=== PATIENT | female | born 1940 | race Caucasian/White ===

== ENCOUNTER → 2016-09-12 | Outpatient (CLI) | payer MEDICARE ==
[~2016-09-12] MED LIST: CRESTOR5 MG PO; IRBE75TA3 PO; METO25TA9 PO
--- NOTE | 2016-09-12 12:46 | CARD ---
APPROVED REPORT EXAM: Two-dimensional and M-mode echocardiogram with Doppler and color Doppler. Other Information Quality : GoodHR: 59bpm Rhythm : Bradycardia INDICATION Dyspnea MIMS RISK FACTORS Hypertension Hyperlipidemia Smoking 2D DIMENSIONS RVDd2.1 (2.9-3.5cm)IVSd1.9 (0.7-1.1cm) Aortic Root(2D)3.0 (2.0-3.7cm)LVDd4.0 (3.9-5.9cm) PWd1.1 (0.7-1.1cm)LVDs2.9 (2.5-4.0cm) FS (%) 28.6 %SV38.1 ml LVEF(%)55.8 (>50%) Mitral Valve MV E Qvhdcgcn23.4cm/sMV DECEL [id number] MV A Jczcojwn47.5cm/sE/A Ratio0.9 Tricuspid Valve TR P. Rnregopk138kj/sRAP SSBJNULK2yvGz TR Peak Gr.35mmHg LEFT VENTRICLE The left ventricle is normal size. There is mild concentric left ventricular hypertrophy. The left ve ntricular systolic function is normal and the ejection fraction is within normal range. The Ejection Fraction is 55-60%. There is normal LV segmental wall motion. Transmitral Doppler flow pattern is Gra de I-abnormal relaxation pattern. RIGHT VENTRICLE The right ventricle is normal size. There is normal right ventricular wall thickness. The right ventr icular systolic function is normal. ATRIA The left atrium size is normal. The right atrium size is normal. The interatrial septum is intact wit h no evidence for an atrial septal defect or patent foramen ovale as noted on 2-D or Doppler imaging. AORTIC VALVE The aortic valve is mildly The aortic valve is trileaflet. Doppler and Color Flow revealed no signifi cant aortic regurgitation. There is no significant aortic valvular stenosis. MITRAL VALVE Mitral annular calcification is mild. The mitral valve leaflets are thickened. There is no evidence o f mitral valve prolapse. There is no mitral valve stenosis. Doppler and Color Flow revealed mild mitr al regurgitation. TRICUSPID VALVE Doppler and Color Flow revealed mild tricuspid regurgitation. The pulmonary artery systolic pressure is estimated at 38 mmHg. PULMONIC VALVE Doppler and Color Flow revealed mild pulmonic valvular regurgitation. There is no pulmonic valvular s tenosis. GREAT VESSELS The aortic root is normal in size. The ascending aorta is normal in size. The IVC is normal in size a nd collapses >50% with inspiration. PERICARDIAL EFFUSION There is no evidence of significant pericardial effusion. Critical Notification Critical Value: No <Conclusion> The left ventricular systolic function is normal and the ejection fraction is within normal range. Th e Ejection Fraction is 55-60%. There is normal LV segmental wall motion. Transmitral Doppler flow pattern is Grade I-abnormal relaxation pattern.
== END | disposition home or self-care (01) ==
LOC: ECHO 09:23
PROVIDERS: ATTEND Nurse Practitioner
DX: I51.7 Cardiomegaly (principal); R11.10 Vomiting, unspecified; R06.00 Dyspnea, unspecified; R06.09 Other forms of dyspnea; I10 Essential (primary) hypertension; E78.5 Hyperlipidemia, unspecified; F17.210 Nicotine dependence, cigarettes, uncomplicated
CPT/HCPCS: 93306

== ENCOUNTER 2016-12-14 17:53 | Emergency (ER) | payer MEDICARE ==
--- NOTE | 2016-12-14 18:36 | EKG ---
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
--- NOTE | 2016-12-14 18:41 | ED.ADGEN ---
Adult General HPI HPI Patient is a 76-year-old woman, with history of hypertension, AAA status post repair and revision at several years ago, colon cancer in the 1970s, who presents to the emergency department with report of altered mental status and being found lying on the floor by her family. Patient's son is present, arrived with EMS did transfer the patient to the hospital. They state the patient was combative en route. Patient's son in the ED states that she was at home this morning, which is last time he saw her. He states another family member saw her late morning, and at that time the patient stated she was going to go lie down. He states that when he arrived at home the patient had been moved to the bed, was apparently found lying on the floor by family and was stated to be "unresponsive" at that time, although is unclear exactly what was happening at that time, he was not present. Patient states that she "tripped", but his neighbor clarify why and when. Patient is currently able to state name and location, although she gives the wrong age, and is grabbing occasionally at staff, and is attempting to move on the bed constantly. GCS of 14-15, depending on time of examination. Accu-Chek in route was 126. Patient's son states that she is combative at times, he cannot provide additional medical history, he does have medication bottles which he picked up from her home, he states that his mother told him" I was just taking medications when I needed", regarding her blood pressure medications. He states that she has been unsteady on her feet lately, but does not know of any recent falls although last month she states she tripped over the dog. He states that she has used alcohol in the past , but did not relieve she is using it currently. C-collar placed on patient arrival to the emergency department. She is moving all extremities stated, complaining of headache, was unable to clarify further. Denies any other complaints, is attempting to roll over, and at times to move out of bed. Review of Systems Review of Systems Constitutional: Denies fever or chills [] Eyes: Denies change in visual acuity, redness, or eye pain [] HENT: Denies nasal congestion or sore throat [] Respiratory: Denies cough or shortness of breath [] Cardiovascular: No additional information not addressed in HPI [] GI: Denies abdominal pain, nausea, vomiting, bloody stools or diarrhea [] : Denies dysuria or hematuria [] Musculoskeletal: Denies back pain or joint pain [] Integument: Denies rash or skin lesions [] Neurologic: Denies focal weakness or sensory changes. Headache area [] Endocrine: Denies polyuria or polydipsia [] Review of systems Limited secondary to patient's clinical condition. Current Medications Current Medications Current Medications Medications (Trade) Dose Ordered Sig/Kaleb Start Time Stop Time Status Last Admin Dose Admin Sodium Chloride 1,000 ml @ 75 mls/hr 1X ONCE 12/14/16 21:00 12/14/16 22:59 DC 12/14/16 21:00 75 MLS/HR Allergies Allergies Allergies Coded Allergies Type Severity Reaction Last Updated Verified No Known Drug Allergies 01/12/16 No Physical Exam Physical Exam Constitutional: Well developed, well nourished, agitated, poor skin turgor. Non- toxic appearance. [] HENT: Normocephalic, atraumatic, bilateral external ears normal, dry mucous membranes, oropharynx moist, no oral exudates, nose normal. [] Eyes: PERRLA, EOMI, conjunctiva normal, no discharge. [] Neck: Normal range of motion, no tenderness, supple, no stridor. [] Cardiovascular:Heart rate regular rhythm, no murmur, S1, S2, no rubs or gallops , examination limited secondary to patient compliance. [] Lungs & Thorax: Diminished breath sounds at bases bilaterally, no rhonchi or rales appreciated, no chest or crepitus or tenderness. [] Abdomen: Bowel sounds normal, soft, no rebound, rigidity, no guarding, no masses , no pulsatile masses. [] Skin: Warm, dry, no erythema, no rash. Poor skin turgor area [] Back: No tenderness, no CVA tenderness. [] Extremities: No tenderness, no cyanosis, no clubbing, ROM intact, no edema. Homans sign. [] Neurologic: Alert and oriented X 2, patient counseling moving, is moving all extremities equally, but not compliant with some questioning, some examination, is agitated, limiting examination. Psychologic: Patient is agitated, confused. [] Current Patient Data Vital Signs Vital Signs Date Time Temp Pulse Resp B/P (MAP) Pulse Ox O2 Delivery O2 Flow Rate FiO2 6/29/17 18:10 98.3 88 16 98 Lab Results Laboratory Tests Test 12/14/16 17:15 12/14/16 18:17 12/14/16 19:00 White Blood Count 12.3 x10^3/uL (4.0-11.0) H Red Blood Count 4.60 x10^6/uL (3.50-5.40) Hemoglobin 14.3 g/dL (12.0-15.5) Hematocrit 39.8 % (36.0-47.0) Mean Corpuscular Volume 87 fL (79-100) Mean Corpuscular Hemoglobin 31 pg (25-35) Mean Corpuscular Hemoglobin Concent 36 g/dL (31-37) Red Cell Distribution Width 12.7 % (11.5-14.5) Platelet Count 204 x10^3/uL (140-400) Neutrophils (%) (Auto) 89 % (31-73) H Lymphocytes (%) (Auto) 6 % (24-48) L Monocytes (%) (Auto) 4 % (0-9) Eosinophils (%) (Auto) 0 % (0-3) Basophils (%) (Auto) 0 % (0-3) Neutrophils # (Auto) 11.0 x10^3uL (1.8-7.7) H Lymphocytes # (Auto) 0.8 x10^3/uL (1.0-4.8) L Monocytes # (Auto) 0.5 x10^3/uL (0.0-1.1) Eosinophils # (Auto) 0.0 x10^3/uL (0.0-0.7) Basophils # (Auto) 0.0 x10^3/uL (0.0-0.2) Sodium Level 107 mmol/L (136-145) *L Potassium Level 3.1 mmol/L (3.5-5.1) L Chloride Level 70 mmol/L (98-107) L Carbon Dioxide Level 24 mmol/L (21-32) Anion Gap 13 (6-14) Blood Urea Nitrogen 15 mg/dL (7-20) Creatinine 1.0 mg/dL (0.6-1.0) Estimated GFR (Cockcroft-Gault) 54.1 BUN/Creatinine Ratio 15 (6-20) Glucose Level 152 mg/dL (70-99) H Calcium Level 9.2 mg/dL (8.5-10.1) Total Bilirubin 1.5 mg/dL (0.2-1.0) H Aspartate Amino Transferase (AST) 42 U/L (15-37) H Alanine Aminotransferase (ALT) 26 U/L (14-59) Alkaline Phosphatase 129 U/L (46-116) H Creatine Kinase 591 U/L (26-192) H Troponin I Quantitative < 0.017 ng/mL (0-0.055) VS-Kyd-E-Type Natriuretic Peptide 1892 pg/mL (0-449) H Total Protein 7.8 g/dL (6.4-8.2) Albumin 4.0 g/dL (3.4-5.0) Albumin/Globulin Ratio 1.1 (1.0-1.7) Ethyl Alcohol Level < 10 mg/dL (0-10) Prothrombin Time 10.4 SEC (9.4-11.4) Prothrombin Time INR 1.0 (0.9-1.1) PTT 29 SEC (23-33) Lactic Acid Level 3.6 mmol/L (0.4-2.0) H Urine Collection Type U cath Urine Color Yellow Urine Clarity Clear Urine pH 6.0 Urine Specific [place] 1.015 Urine Protein Neg (NEG-TRACE) Urine Glucose (UA) Neg mg/dL (NEG) Urine Ketones (Stick) Trace mg/dL (NEG) Urine Blood Small (NEG) Urine Nitrite Neg (NEG) Urine Bilirubin Neg (NEG) Urine Urobilinogen Dipstick 0.2 mg/dL (0.2 mg/dL) Urine Leukocyte Esterase Neg (NEG) Urine RBC Rare /HPF (0-2) Urine WBC 0 /HPF (0-4) Urine Squamous Epithelial Cells Few /LPF Urine Transitional Epithelial Cells Occ /LPF Urine Bacteria 0 /HPF (0-FEW) Urine Hyaline Casts Occ /HPF Urine Mucus Slight /LPF Urine Opiates Screen Neg (NEG) Urine Methadone Screen Neg (NEG) Urine Barbiturates Neg (NEG) Urine Phencyclidine Screen Neg (NEG) Urine Amphetamine/Methamphetamine Neg (NEG) Urine Benzodiazepines Screen Neg (NEG) Urine Cocaine Screen Neg (NEG) Urine Cannabinoids Screen Neg (NEG) Urine Ethyl Alcohol Neg (NEG) EKG EKG EC: Limited evaluation secondary to patient compliance, multiple times to obtain ECG, sinus tachycardia, heart rate 113 beats are minute, QTC of 483, AL 136, significant baseline artifact as stated, significantly limiting interpretation, concerning for possible abnormalities in the anterior lateral leads, but as stated interpretation is significantly limited secondary to exam. [] Radiology/Procedures Radiology/Procedures [][address] [address] IMAGING REPORT Signed PATIENT: GABRIEL NEWTON ACCOUNT: [id number] : 1940 LOCATION: ER AGE: 76 SEX: F EXAM STATUS: REG ER ORD. PHYSICIAN: SWETA HOLLINGSWORTH DO REASON: AMS/Fall/Possible intoxication PROCEDURE: CT HEAD AND CERVICAL SPINE WO CT head without intravenous contrast History: Altered mental status, fall, possible intoxication. Comparison: None. Technique: Axial images are obtained of the head from the skull base through the vertex without IV contrast. Exposure: One or more of the following individualized dose reduction techniques were utilized for this examination: 1. Automated exposure control 2. Adjustment of the mA and/or kV according to patient size 3. Use of iterative reconstruction technique Findings: The ventricles are appropriate in size, shape, and location for the patient's age. No obvious intracranial mass, mass-effect, midline shift, hemorrhage or obvious acute infarction is identified. Basilar cisterns are patent. Bone windows demonstrate no acute calvarial abnormality. Incompletely seen is mild left maxillary sinus disease. Impression: 1. No acute intracranial process. Please note that CT can be relatively insensitive to acute ischemic infarction for up to 24 hours after symptom onset. 2. Left maxillary sinus disease. CT cervical spine Comparison: None. Technique: Noncontrast CT of the cervical spine was performed using helical technique. Axial, sagittal, coronal reconstructions were obtained. Exposure: One or more of the following individualized dose reduction techniques were utilized for this examination: 1. Automated exposure control 2. Adjustment of the mA and/or kV according to patient size 3. Use of iterative reconstruction technique Findings: There is no evidence of acute fracture or acute malalignment involving the cervical spine. No prevertebral soft tissue swelling is identified. Multilevel degeneration is seen with facet and uncovertebral hypertrophy as well as degenerative disc disease. Images of the upper chest demonstrate centrilobular emphysema. Impression: 1. No evidence of acute traumatic injury involving the cervical spine. 2. Degeneration. Electronically signed by: Hugo Downs MD (12/14/2016 7:32 PM) DICTATED AND SIGNED BY: HUGO DOWNS MD DATE: 12/14/161927 CC: SWETA HOLLINGSWORTH DO; NURA ANNE ~ Chest x-ray: One view: Patient with tortuous ectatic aorta, no infiltrates, effusions, soft tissue or bony abnormalities identified. No significant change when compared to chest x-ray obtained earlier today. As interpreted by me. Course & Med Decision Making Course & Med Decision Making Pertinent Labs and Imaging studies reviewed. (See chart for details) Patient combative, confused on arrival, although she is moving all extremities and will sometimes his request appropriately, she has not following commands, requires assistance of multiple staff members in order to obtain ECG and evaluation. C-collar was placed on arrival, patient was fully undressed and evaluated, no external signs of trauma identified. Patient is complaining of "pain in my head", but cannot clarify further. I did speak with patient's son at bedside, who again states the patient had a medication change recently, with hydrochlorothiazide for blood pressure, although it was unclear if the patient is been compliant with her medications based on his report of which she stated, and that she has had multiple falls recently and has been increasingly unsteady in her gait. Additional information obtained, patient was last seen normal around 11:30, returning from a doctor's appointment. Imaging of head and neck is unremarkable, laboratory studies reveal a sodium of 107, and a potassium of 3.1, with a lactic of 3.6. I did discuss this with patient's family at bedside, patient is requiring soft restraints at this time, as she continues to be combative and confused, and she is at risk to both herself and staff, along with family at bedside. They've attempted to redirect her without success. They' re agreeable for plan for patient to be admitted to the hospital for treatment of hyponatremia, patient has not exhibited any seizure activity. As stated, patient was recently started on hydrochlorothiazide, no other changes or concerning history reported. No other findings identified in the evaluation. I did discuss findings as above with Dr. Sotelo of nephrology, who recommends the patient be initiated on normal saline at 75 ML's an hour, due to the severity of her hyponatremia, that he be contacted upon the time of the patient's arrival at [facility] for additional orders and evaluation. I did discuss findings as above with Dr. merrill of internal medicine, patient was accepted his service as a full admission, at this time plan to transfer to the ICU for close monitoring. I had a lengthy discussion at bedside with patient's family regarding the risks of hyponatremia, and that even with slow repletion, that some injury could be caused. They understand the critical nature of her mother's illness, and the treatment plan in place at this time. Transfer paper was completed, patient remained stable on the monitor with normal saline infusing at 75 ML's an hour, at time of transfer to [facility]. Final Impression Final Impression [] Problems: Dragon Disclaimer Dragon Disclaimer This electronic medical record was generated, in whole or in part, using a voice recognition dictation system. Departure: Impression: Primary Impression: Hyponatremia Additional Impression: Altered mental status Disposition: ADMITTED INPATIENT Admitting Physician: Other Condition: IMPROVED SWETA HOLLINGSWORTH DO Dec 14, 2016 18:40
--- NOTE | 2016-12-14 18:52 | ACF ---
Admission Criteria Forms MENTAL STATUS CHANGE Clinical Indications for Inpatient Care (Place 'X' for any and all applicable criteria): Ongoing inpatient care may be needed for 1 or more of the following(1)(2)(3)(5)( 6): [X ]I. Suspected serious etiology (eg, medical disorder, HARDWARE INSTALLATION COORDINATOR event) of altered mental status [ ]II. Danger to self or others not manageable at lower level of care [ ]III. Grave disability (eg, inability to perform self care necessary at lower level of care) [ ]IV. Agitation or inappropriate behavior interfering with care for primary condition (eg, attempting to discontinue lines or drains prematurely, unable to cooperate with respiratory care) [ ]V. Delirium [A] [D][E] as described by 1 or more of the following(26): [ ]a) Delirium due to alcohol or sedative [F] withdrawal [ ]b) Delirium of uncertain etiology that has not responded to appropriate empiric treatment [ ]c) Delirium that prevents performance of a life-sustaining function (eg, feeding or hydrating oneself) [ ]. General contraindications and/or Inappropriate clinical situations for Observational Care in patients with Mental Status Change, when ANY ONE of the following is required: [ ]a) Prediction of prolongation of LOS based on ANY ONE of the following may be considered as a contraindication for observational care 2, 3, 4, 5, 6, 7, 8, 9, 10, 11 [ ]i) Age > 65 yrs. [ ]ii) Patient arriving by ambulance [ ]iii) Patient with high acuity [ ]iv) Patient requiring vital sign monitoring [ ]v) Patient on IV medication [ ]b) Systolic blood pressures greater than or equal to 180mmHg 3, 12 [ ]c) Patient with altered mental status including delirium and other alteration of consciousness, (3) [ ]d) Patient whose discharge disposition will be to a halfway home or rehabilitation home should not be managed in Emergency Department Observation Unit. CMS rule requires 3 days hospital stay before such placement.3,13 [ ]e) Patient with failure to thrive due to broad array of etiologies 3,16,17 [ ]f) Inability to ambulate 3,14 Extended stay beyond goal length of stay for the primary condition may be needed until ALL of the following are present(3)(5): [ ]a) Underlying medical etiology of mental status change is absent, or has been established and adequately treated [ ]b) Danger to self or others is absent or manageable at lower level of care. [ ]c) Behavior crisis management, including physical or chemical restraints, is not required or available at lower level of car [ ]d) Substance or alcohol withdrawal is absent or manageable at lower level of care. [ ]e) Behavioral symptoms (eg, agitation, somnolence, inappropriate behavior) are absent, or are manageable at lower level of care. The original [email or web address] content created by [email or web address] has been revised. The portions of the content which have been revised are identified through the use of italic text or in bold, and [facility] has neither reviewed nor approved the modified material. All other unmodified content is copyright [email or web address]. Please see references footnoted in the original [email or web address] edition 2016 Admission Criteria Met?: Yes ALANNAH LOVE Dec 14, 2016 18:52
[2016-12-14 19:27] LABS: BASO % 0 % (0-3); EOS % 0 % (0-3); HEMATOCRIT 39.8 % (36.0-47.0); HEMOGLOBIN 14.3 g/dL (12.0-15.5); LYMPH # 0.8 x10^3/uL (1.0-4.8); LYMPH % 6 % (24-48); MEAN CORPUSCULAR HEMOGLOBIN 31 pg (25-35); MEAN CORPUSCULAR HGB CONC 36 g/dL (31-37); MEAN CORPUSCULAR VOLUME 87 fL (79-100); MONO # 0.5 x10^3/uL (0.0-1.1); MONO % 4 % (0-9); NEUT % 89 % (31-73); PLATELET COUNT 204 x10^3/uL (140-400); RED CELL DISTRIBUTION WIDTH 12.7 % (11.5-14.5); WHITE BLOOD COUNT 12.3 x10^3/uL (4.0-11.0)
[2016-12-14 19:35] LABS: CLARITY,URINE CLEAR; COLOR,URINE YELLOW; GLUCOSE,URINE NEG (NEG)
--- NOTE | 2016-12-14 19:35 | RAD ---
CT head without intravenous contrast History: Altered mental status, fall, possible intoxication. Comparison: None. Technique: Axial images are obtained of the head from the skull base through the vertex without IV contrast. Exposure: One or more of the following individualized dose reduction techniques were utilized for this examination: 1. Automated exposure control 2. Adjustment of the mA and/or kV according to patient size 3. Use of iterative reconstruction technique Findings: The ventricles are appropriate in size, shape, and location for the patient's age. No obvious intracranial mass, mass-effect, midline shift, hemorrhage or obvious acute infarction is identified. Basilar cisterns are patent. Bone windows demonstrate no acute calvarial abnormality. Incompletely seen is mild left maxillary sinus disease. Impression: 1. No acute intracranial process. Please note that CT can be relatively insensitive to acute ischemic infarction for up to 24 hours after symptom onset. 2. Left maxillary sinus disease. CT cervical spine Comparison: None. Technique: Noncontrast CT of the cervical spine was performed using helical technique. Axial, sagittal, coronal reconstructions were obtained. Exposure: One or more of the following individualized dose reduction techniques were utilized for this examination: 1. Automated exposure control 2. Adjustment of the mA and/or kV according to patient size 3. Use of iterative reconstruction technique Findings: There is no evidence of acute fracture or acute malalignment involving the cervical spine. No prevertebral soft tissue swelling is identified. Multilevel degeneration is seen with facet and uncovertebral hypertrophy as well as degenerative disc disease. Images of the upper chest demonstrate centrilobular emphysema. Impression: 1. No evidence of acute traumatic injury involving the cervical spine. 2. Degeneration. Electronically signed by: Hugo Murphy MD (12/14/2016 7:32 PM)
[2016-12-14 19:36] LABS: BACTERIA,URINE 0 /HPF (0-FEW); BILIRUBIN,URINE NEG (NEG); HYALINE CASTS, URINE OCC /HPF; NITRITE,URINE NEG (NEG); RBC,URINE RARE /HPF (0-2); SQUAMOUS EPITHELIAL CELL,UR FEW /LPF; UROBILINOGEN,URINE 0.2 mg/dL (0.2 mg/dL); WBC,URINE 0 /HPF (0-4)
[2016-12-14 19:42] LABS: BARBITURATES NEG (NEG); BENZODIAZEPINES NEG (NEG); CANNABINOIDS NEG (NEG); COCAINE NEG (NEG); METHADONE NEG (NEG); OPIATES NEG (NEG); PHENCYCLIDINE NEG (NEG)
[2016-12-14 19:43] LABS: AMPHETAMINE/METHAMPHETAMINE NEG (NEG)
[2016-12-14 19:47] LABS: ALBUMIN/GLOBULIN RATIO 1.1 (1.0-1.7); CALCIUM 9.2 mg/dL (8.5-10.1); GFR 54.1; POTASSIUM 3.1 mmol/L (3.5-5.1); TOTAL BILIRUBIN 1.5 mg/dL (0.2-1.0); TOTAL PROTEIN 7.8 g/dL (6.4-8.2)
[2016-12-14] MEDS ORDERED: IV NORMAL SALINE 1,000ML 1,000 ML IV ONE (21:00)
[2016-12-14 22:30] VITALS: BP 116/67
--- NOTE | 2016-12-15 07:58 | RAD ---
Portable AP supine view CXR: Clinical indications: Altered mental status. Fall. Combativeness. No medical history. Comparison: July 25, 2016.. Findings: No acute lung infiltrate or pleural effusion or pulmonary edema or lung mass or pneumothorax is seen. The heart size, pulmonary vasculature, mediastinum and both benito are stable. Tortuosity of the thoracic aorta is again noted. Impression: No acute radiographic abnormality is seen.
== END 2016-12-14 22:30 | disposition other institution (70) ==
LOC: ER 17:53
DX: R41.82 Altered mental status, unspecified (principal); E87.1 Hypo-osmolality and hyponatremia; I10 Essential (primary) hypertension; I71.4 Abdominal aortic aneurysm, without rupture; R29.6 Repeated falls
CPT/HCPCS: 36415; 70450; 71010; 72125; 80053; 80305; 80320; 81001; 82550; 83605; 83880; 84484; 85027; 85610; 85730; 93005; 96360; G0480; G0481; 99285-25; J7030

== ENCOUNTER → 2016-12-14 | Outpatient (CLI) | payer MEDICARE ==
--- NOTE | 2016-12-14 11:10 | RAD ---
Indication: Cough and unsteady gait. Time of exam 10:59 AM No prior studies are available for comparison. The heart size is normal. There is marked ectasia and tortuosity of the descending thoracic aorta and aortic arch. The lungs appear hyperinflated consistent with COPD. No infiltrates are detected. No effusion or pneumothorax is identified. Impression: COPD. No acute feature is detected.
== END | disposition home or self-care (01) ==
LOC: DXRADRC 10:48
PROVIDERS: ATTEND Family Medicine
DX: J44.9 Chronic obstructive pulmonary disease, unspecified (principal); R26.81 Unsteadiness on feet
CPT/HCPCS: 71020

== ENCOUNTER 2016-12-22 15:54 | Inpatient (IN) | payer MEDICARE ==
[~2016-12-22] VITALS: Ht 157.5 cm; Wt 54.6 kg
[~2016-12-22 15:54] MED LIST changes: +ACET325T9 PO; +AMLO5TAB4 PO; +ATORVASTATIN CA80 MG PO; +DOCU-109 PO; +ENOX40DI SQ; +FAMO-63 PO; +GABA-586 PO; +LOSA100T2 PO; +MAGN400T3 PO; +METO50TA2 PO; +TRAM50TA PO
--- NOTE | 2016-12-22 16:05 | NUR ---
Swing Bed Admission Patient Handbook for [facility] given to patient. Nursing Problem: Physical therapy and Occupation therapy Cognitive/Behavioral:PT is Ax0x3 with some confusion or forgetfulness at times. Pain: No pain at this time. Respiratory Status:Pt has a non productive cough. Skin:Intact no wounds, multiple bruises. Bowel/Bladder Continence:Continent of bowel and bladder. ADL Functional Status:PT has trouble getting up from sitting position. One person assist. Than pt is 1:1 monitoring when ambulating with wheeled walker. PT needs assistance with dressing and toileting. Pt can feed self, but can have soft diet, no straws, no distractions, and must be at a 90 degree angle per speech evaluation. PT did have fall prior to admission, pt was found to have critical sodium unsure if contributed to fall. PT does have shuffling gait and needs to be encouraged to take larger steps. PT was brought to [facility] and transferred to [facility] for hyponatremia. PT is being transferred back from [facility] for PT/OT for 2 weeks. PT does live with her with son. Hue Marks PANEL MAKER CMSRN NM-
--- NOTE | 2016-12-22 16:16 | NUR ---
Swing Bed Nursing Note Patient Handbook for [facility] given to patient. Nursing Problem:Weakness: Physical therapy and occupational therapy Cognitive/Behavioral: PT is Ax0x3 with some forgetfulness at times. Pain:No pain at this time. Respiratory Status: Pt has non productive cough. Skin: Intact some bruising noted on arms with friable skin. Bowel/Bladder Continence: Pt is continent of bowel and bladder. Bowl movement today 12/22/16 prior to leaving [facility]. ADL Functional Status: PT needs 1 person assist to get up from chair than observation while ambulating with walker. Minimal assist with walking in the vil[place]. Pt does have shuffling gait and needs to be encourage to take larger steps. Max assist with dressing and toileting. Hue Marks [employer]RN [facility]
[2016-12-22 16:25] VITALS: BP 153/83
[2016-12-22] MEDS ORDERED: traMADol 50 MG TABLET PO PRN (16:30)
[2016-12-22] MEDS ORDERED: DOCUSATE SODIUM 100 MG CAPSULE PO PRN (16:30)
[2016-12-22] MEDS ORDERED: ACETAMINOPHEN 325 MG TABLET PO PRN (16:30)
[2016-12-22] MEDS ORDERED: GABAPENTIN 300 MG CAPSULE. PO PRN (16:30)
[2016-12-22 18:47] VITALS: BP 147/90
[2016-12-22] MEDS: METOPROLOL TART IMMED RELEASE 50 MG TABLET PO SCH (20:21)
[2016-12-22] MEDS: ATORVASTATIN CALCIUM 20 MG TABLET PO SCH (20:21)
[2016-12-22] MEDS: FAMOTIDINE 20 MG TABLET PO SCH (20:22)
[2016-12-22] MEDS: MAGNESIUM OXIDE 400 MG TABLET PO SCH (20:22)
--- NOTE | 2016-12-22 23:00 | NUR ---
Swing Bed Nursing Note Patient Handbook for Nursing Home given to patient. Nursing Problem:Weakness: Physical therapy and occupational therapy Cognitive/Behavioral: PT is Ax0x3 with some forgetfulness at times. Pain:No pain at this time. Respiratory Status: Pt has productive cough. Skin: Intact some bruising noted on arms with friable skin. Bowel/Bladder Continence: Pt is continent of bowel and bladder. Bowl movement 12/22 ADL Functional Status: PT needs 1 person assist to get up from chair than observation while ambulating with walker. Minimal assist with walking in the villegas. Pt does have shuffling gait and needs to be encourage to take larger steps. Max assist with dressing and toileting. Takes pills one at a time with several sips of water with each pill.
--- NOTE | 2016-12-23 04:01 | NUR ---
Patient complained of chest soreness from coughing. Requested pain medication. PRN tramadol given.
[2016-12-23 05:28] VITALS: BP 158/87
[2016-12-23] MEDS: amLODIPine BESYLATE 5 MG TABLET PO SCH (10:02)
[2016-12-23] MEDS: METOPROLOL TART IMMED RELEASE 50 MG TABLET PO SCH ×2 (10:02→21:19)
[2016-12-23] MEDS: LOSARTAN 50 MG TABLET. PO SCH (10:02)
[2016-12-23] MEDS: MAGNESIUM OXIDE 400 MG TABLET PO SCH ×2 (10:03→21:18)
[2016-12-23] MEDS ORDERED: POLYVINYL ALCOHOL 1.4% OPHTH SOLUTION 15ML BOTTLE. OU PRN (12:45)
--- NOTE | 2016-12-23 18:08 | NUR ---
Swing Bed Nursing Note Patient Handbook for [facility] given to patient. Nursing Problem:Weakness: Physical therapy and occupational therapy Cognitive/Behavioral: PT is Ax0x3 with some forgetfulness at times. Pain:PT reports pain in back which seems to hinder movement, however refuses any pain meds. Respiratory Status: Pt has productive cough. Skin: Intact some bruising noted on arms with friable skin. Bowel/Bladder Continence: Pt is continent of bowel and bladder. Bowl movement 12/22 ADL Functional Status: PT needs 1 person assist to get up from chair then standby assist while ambulating with walker. Standby assist needed when walking in hallway. Pt does have an unsteady, shuffling gait and needs to be encouraged to take larger steps. Max assist with dressing and toileting. Takes pills one at a time with several sips of water with each pill.
[2016-12-23 19:10] VITALS: BP 126/74
--- NOTE | 2016-12-23 20:25 | NUR ---
Swing Bed Nursing Note Patient Handbook for [facility] given to patient. Nursing Problem: Weakness, poor balance and coordination. Pt here for physical therapy and occupational therapy for strength training. Cognitive/Behavioral: Pt is Ax0x3 with some forgetfulness at times but pleasant and cooperative with HS assessment. Pt siting up in bed at change of shift watching TV and reading the news paper. Pt stated that she had a good but long day. Pain: Pt reports some back soreness/stiffness but refused pain medication at this time. Pt also had a RUE PICC line that was removed recently and stated that it is sore when her BP is taken over that site, asked that we not use that arm for BP. Respiratory Status: Pt has a chronic "smokers cough." Pt is on room air. Mild SOB noted with exertion. Skin: Intact some bruising noted on arms. Thin/friable skin. Coccyx noted to be intact. Bowel/Bladder Continence: Pt is continent of bowel and bladder. Bowl movement 7/7 per pt. ADL Functional Status: Pt needs x1 person assist to get up from bed/chair but then standby assist while ambulating with walker for guiding/steering walk as she gets easily distracted. Pt with small step/shuffling gait. Pt encouraged to take larger steps. Pt needs x1 assist with toileting and personal hygiene. Takes pills whole but one at a time with several sips of water with each pill. Pt needs to be sitting up with ANY intake. Pt refused HS snack.
[2016-12-23] MEDS: FAMOTIDINE 20 MG TABLET PO SCH (21:19)
[2016-12-23] MEDS: ATORVASTATIN CALCIUM 20 MG TABLET PO SCH (21:19)
[2016-12-24 05:53] VITALS: BP 151/91
[2016-12-24] MEDS: LOSARTAN 50 MG TABLET. PO SCH (08:12)
[2016-12-24] MEDS: METOPROLOL TART IMMED RELEASE 50 MG TABLET PO SCH ×2 (08:12→20:07)
[2016-12-24] MEDS: amLODIPine BESYLATE 5 MG TABLET PO SCH (08:12)
[2016-12-24] MEDS: MAGNESIUM OXIDE 400 MG TABLET PO SCH ×2 (08:13→20:07)
--- NOTE | 2016-12-24 09:43 | NUR ---
Swing Bed Nursing Note Patient Handbook for [facility] given to patient. Nursing Problem: Pt here for PT/OT services for gait training due to weakness, poor balance and coordination. Cognitive/Behavioral: Pt is Ax0x3 with some forgetfulness at times. Pt is pleasant and cooperative with care and ADLS. Upon assessment patient is sitting in chair eating breakfast and able to make needs known. States she is tired. Pain: Reported to nurse that patient has some back soreness/stiffness but refuses to take pain medication. When questioning patient if she is having any pain patient denied. Respiratory Status: Pt has a chronic "smokers cough." States her cough comes and goes. Pt is on room air. Mild SOB noted with exertion. Skin: Intact some bruising noted on arms. Thin/friable skin. Coccyx noted to be intact. Bowel/Bladder Continence: Pt is continent of bowel and bladder. Bowl movement 12/24. ADL Functional Status: Pt requires x1 person assist to get up from bed/chair and then standby assist while ambulating with walker. Pt with small step/shuffling gait. Pt encouraged to take larger steps. Pt needs x1 assist with toileting and personal hygiene. Pt was able to due oral care independently and brush and blow dry hair independently as well. Shower completed this AM, requiring minimal assist. Pt takes pills whole but one at a time with several sips of water with each pill. No complaints at this time.
--- NOTE | 2016-12-24 11:10 | NUR ---
Assumed care of pt.
[2016-12-24 19:02] VITALS: BP 148/79
[2016-12-24] MEDS: FAMOTIDINE 20 MG TABLET PO SCH (20:07)
[2016-12-24] MEDS: ATORVASTATIN CALCIUM 20 MG TABLET PO SCH (20:07)
--- NOTE | 2016-12-24 23:00 | NUR ---
Swing Bed Nursing Note Patient Handbook for [facility] given to patient. Nursing Problem:Weakness: Physical therapy and occupational therapy Cognitive/Behavioral: PT is Ax0x3 with some forgetfulness at times. Patient has not slept much this shift. Pain:No pain at this time. Respiratory Status: Pt has productive cough, 02 Sat is WNL, lung sounds are course. Skin: Intact some bruising noted on arms with friable skin. Bowel/Bladder Continence: Pt is continent of bowel and bladder. Bowl movement 12/24 ADL Functional Status: PT needs 1 person assist to get up from chair than observation while ambulating with walker. Pt does have shuffling gait and needs to be encourage to take larger steps. Max assist with dressing and toileting. Takes pills one at a time with several sips of water with each pill. Patient refused HS snack. Head of bed is elevated while in bed. Patient did put a gown on at HS but stated that she had to keep her sweat shirt on under so she wouldn't be too cold.
[2016-12-25 05:37] VITALS: BP 149/56
[2016-12-25 06:10] LABS: BASO # 0.1 x10^3/uL (0.0-0.2); BASO % 1 % (0-3); EOS # 0.2 x10^3/uL (0.0-0.7); EOS % 2 % (0-3); HEMATOCRIT 31.8 % (36.0-47.0); HEMOGLOBIN 11.2 g/dL (12.0-15.5); LYMPH # 0.9 x10^3/uL (1.0-4.8); LYMPH % 12 % (24-48); MEAN CORPUSCULAR HEMOGLOBIN 32 pg (25-35); MEAN CORPUSCULAR HGB CONC 35 g/dL (31-37); MEAN CORPUSCULAR VOLUME 91 fL (79-100); MONO # 0.6 x10^3/uL (0.0-1.1); MONO % 7 % (0-9); NEUT # 5.8 x10^3uL (1.8-7.7); NEUT % 77 % (31-73); PLATELET COUNT 145 x10^3/uL (140-400); RED BLOOD COUNT 3.51 x10^6/uL (3.50-5.40); RED CELL DISTRIBUTION WIDTH 13.2 % (11.5-14.5); WHITE BLOOD COUNT 7.5 x10^3/uL (4.0-11.0)
[2016-12-25 06:38] LABS: ALBUMIN/GLOBULIN RATIO 0.9 (1.0-1.7); CALCIUM 8.8 mg/dL (8.5-10.1); CREATININE 0.9 mg/dL (0.6-1.0); TOTAL BILIRUBIN 0.9 mg/dL (0.2-1.0); TOTAL PROTEIN 6.2 g/dL (6.4-8.2)
[2016-12-25] MEDS ORDERED: IPRATRPIUM/ALBUTEROL 0.5/2.5MG 3 ML NEBU. NEB PRN (07:30)
[2016-12-25] MEDS ORDERED: IPRATRPIUM/ALBUTEROL 0.5/2.5MG 3 ML NEBU. NEB ONE (07:30)
[2016-12-25] MEDS: MAGNESIUM OXIDE 400 MG TABLET PO SCH ×2 (08:04→19:48)
[2016-12-25] MEDS: METOPROLOL TART IMMED RELEASE 50 MG TABLET PO SCH ×2 (08:04→19:49)
[2016-12-25] MEDS: LOSARTAN 50 MG TABLET. PO SCH (08:04)
[2016-12-25] MEDS: amLODIPine BESYLATE 5 MG TABLET PO SCH (08:05)
[2016-12-25] MEDS: guaiFENesin DM 600/30MG 1 TAB TAB.ER.12H PO SCH ×2 (08:06→19:48)
--- NOTE | 2016-12-25 08:30 | NUR ---
Swing Bed Nursing Note [facility] given to patient. Nursing Problem: Pt here for PT/OT services for gait training due to weakness, poor balance and coordination. Cognitive/Behavioral: Pt is Ax0x3 with some forgetfulness at times. Pt is pleasant and cooperative with care and ADLS this AM. Pt awakened this AM wanting to get dressed, brush teeth and get ready for the day. Pt ate 100% of breakfast and states she loves peanut butter and cereal, dietary notified. Pain: Pt denies pain or discomfort at this time. Reported to nurse that she will deny pain medication. Respiratory Status: Pt has a chronic "smokers cough." States her cough comes and goes. Pt is on room air 92%. Mild SOB noted with exertion. Notfied physician of productive cough that appears to have worsened, mucinex and mmtx ordered this AM. Skin: Intact some bruising noted on arms. Thin/friable skin. Coccyx noted to be intact. Bowel/Bladder Continence: Pt is continent of bowel and bladder. Bowl movement 12/24. ADL Functional Status: Pt requires x1 person assist to get up from bed/chair and then standby assist while ambulating with walker. Pt with small step/shuffling gait. Pt encouraged to take larger steps. Pt was independent with toileting and personal hygiene today. Pt was able to due oral care independently and brush hair independently as well. Working with PT/OT today. Pt takes pills whole but one at a time with several sips of water with each pill. No complaints at this time.
[2016-12-25] MEDS ORDERED: POTASSIUM CHLORIDE 20 MEQ TABLET.ER. PO SCH ×2 (09:00→21:00)
[2016-12-25 19:17] VITALS: BP 131/81
[2016-12-25] MEDS: ATORVASTATIN CALCIUM 20 MG TABLET PO SCH (19:48)
[2016-12-25] MEDS: FAMOTIDINE 20 MG TABLET PO SCH (19:48)
--- NOTE | 2016-12-26 00:48 | NUR ---
Swing Bed Nursing Note Patient Handbook for [facility] given to patient. Nursing Problem: Pt here for PT/OT services for gait training due to weakness, poor balance and coordination. Cognitive/Behavioral: Pt is Ax0x3 with some forgetfulness at times. Pt is pleasant and cooperative with care and ADLS this AM. Pt is sitting up in her chair, watching tv. Pain: Pt denies pain or discomfort at this time. Reported to nurse that she will deny pain medication. Respiratory Status: Pt has a chronic "smokers cough." States her cough comes and goes. Pt O2 is 93% on room air, and receiving Mucinex BID Skin: Intact some bruising noted on arms. Skin intact. Bowel/Bladder Continence: Pt is continent of bowel and bladder. Bowl movement 12/25. ADL Functional Status: Pt requires x1 person assist to get up from bed/chair and then standby assist while ambulating with walker. Pt with small step/shuffling gait. Pt was independent with toileting and personal hygiene today. Pt takes pills whole but one at a time with several sips of water with each pill. No complaints at this time.
[2016-12-26 06:13] VITALS: BP 130/69
[2016-12-26 06:34] LABS: ALBUMIN 3.3 g/dL (3.4-5.0); ALBUMIN/GLOBULIN RATIO 0.9 (1.0-1.7); CREATININE 0.9 mg/dL (0.6-1.0); MAGNESIUM 1.6 mg/dL (1.8-2.4); POTASSIUM 3.2 mmol/L (3.5-5.1); TOTAL BILIRUBIN 1.1 mg/dL (0.2-1.0); TOTAL PROTEIN 6.8 g/dL (6.4-8.2)
[2016-12-26] MEDS ORDERED: POTASSIUM CHLORIDE 20 MEQ TABLET.ER. PO SCH (07:45)
[2016-12-26] MEDS: guaiFENesin DM 600/30MG 1 TAB TAB.ER.12H PO SCH ×2 (08:21→20:19)
[2016-12-26] MEDS: MAGNESIUM OXIDE 400 MG TABLET PO SCH ×3 (08:21→16:35)
[2016-12-26] MEDS: LOSARTAN 50 MG TABLET. PO SCH (08:21)
[2016-12-26] MEDS: METOPROLOL TART IMMED RELEASE 50 MG TABLET PO SCH ×2 (08:22→20:19)
[2016-12-26] MEDS: amLODIPine BESYLATE 5 MG TABLET PO SCH (08:22)
[2016-12-26] MEDS: POTASSIUM CHLORIDE 20 MEQ TABLET.ER. PO SCH ×2 (08:22→20:18)
--- NOTE | 2016-12-26 08:41 | NUR ---
Swing Bed Nursing Note Patient Handbook for [facility] given to patient. Nursing Problem: Pt here for PT/OT services for gait training due to weakness, poor balance and coordination. Cognitive/Behavioral: Pt is Ax0x3 with some forgetfulness at times. Pt is pleasant and cooperative with care and ADLS this AM. Pt is sitting up on bedside, dressed and talking with her son. Pain: Pt denies pain or discomfort at this time. Reported to nurse that she will deny pain medication as she is "not a pill popper". Respiratory Status: Pt has a chronic "smokers cough." States her cough comes and goes. Pt O2 is 93% on room air, and receiving Mucinex BID Skin: Intact some bruising noted on arms. Skin intact. Bowel/Bladder Continence: Pt is continent of bowel and bladder. Bowel movement 12/26, large loose. ADL Functional Status: Pt requires standby assist while ambulating with walker. Pt with small step/shuffling gait. Pt was independent with toileting and personal hygiene today. Pt takes pills whole but one at a time with several sips of water with each pill. Let potassium dissolve and placed in pudding, pt was having difficulty with large pills. Discussed need for a multi-vitamin, daily use at home. No complaints at this time.
[2016-12-26 10:54] VITALS: BP 103/68
[2016-12-26 18:38] VITALS: BP 105/66
[2016-12-26] MEDS: ATORVASTATIN CALCIUM 20 MG TABLET PO SCH (20:18)
[2016-12-26] MEDS: FAMOTIDINE 20 MG TABLET PO SCH (20:19)
--- NOTE | 2016-12-27 01:02 | NUR ---
Swing Bed Nursing Note Patient Handbook for [facility] given to patient. Nursing Problem: Pt here for PT/OT services for gait training due to weakness, poor balance and coordination. Cognitive/Behavioral: Pt is Ax0x3 with some forgetfulness at times. Pt is pleasant and cooperative with care and ADLS this AM. Pt is resting peacefully in bed at this time. Pain: Pt denies pain or discomfort at this time. Respiratory Status: Pt has a chronic "smokers cough." States her cough comes and goes. Pt O2 is 93% on room air, and receiving Mucinex BID Skin: Intact some bruising noted on arms. Skin intact. Bowel/Bladder Continence: Pt is continent of bowel and bladder. Bowel movement 12/26, large loose. ADL Functional Status: Pt requires standby assist while ambulating with walker. Pt with small step/shuffling gait. Pt was independent with toileting and personal hygiene today. Pt takes pills whole but one at a time with several sips of water with each pill. Let potassium dissolve and placed in pudding, pt was having difficulty with large pills. Discussed need for a multi-vitamin, daily use at home. No complaints at this time.
[2016-12-27] MEDS: MAGNESIUM OXIDE 400 MG TABLET PO SCH ×3 (07:33→16:56)
[2016-12-27] MEDS: LOSARTAN 50 MG TABLET. PO SCH (08:31)
[2016-12-27] MEDS: POTASSIUM CHLORIDE 20 MEQ TABLET.ER. PO SCH ×2 (08:32→20:19)
[2016-12-27] MEDS: amLODIPine BESYLATE 5 MG TABLET PO SCH (08:33)
[2016-12-27] MEDS: guaiFENesin DM 600/30MG 1 TAB TAB.ER.12H PO SCH ×2 (08:33→20:19)
[2016-12-27] MEDS: METOPROLOL TART IMMED RELEASE 50 MG TABLET PO SCH ×2 (08:33→20:19)
[2016-12-27 08:38] VITALS: BP 142/84
--- NOTE | 2016-12-27 09:28 | NUR ---
Swing Bed Nursing Note Patient Handbook for [facility] given to patient. Nursing Problem: Pt here for PT/OT services for gait training due to weakness, poor balance and coordination. Cognitive/Behavioral: Pt is A/0x3 with some forgetfulness at times. Pt is pleasant and cooperative with care and ADLS this AM. Pt is sitting up on bedside. Pain: Pt denies pain or discomfort at this time. Reported to nurse that she will deny pain medication as she is "not a pill popper". Respiratory Status: Pt has a chronic "smokers cough." States her cough comes and goes. Pt O2 is 93% on room air, and receiving Mucinex BID Skin: Some bruising noted on arms. Skin intact. Bowel/Bladder Continence: Pt is continent of bowel and bladder. Bowel movement 12/27, large loose. ADL Functional Status: Pt requires standby assist while ambulating with walker. Pt with small step/shuffling gait. Pt was independent with toileting and personal hygiene today. Pt takes pills whole but one at a time with several sips of water with each pill. Let potassium dissolve and placed in pudding, pt was having difficulty with large pills. Discussed need for a multi-vitamin, daily use at home. No complaints at this time.
[2016-12-27 09:34] LABS: CALCIUM 9.1 mg/dL (8.5-10.1); CREATININE 0.9 mg/dL (0.6-1.0); MAGNESIUM 1.7 mg/dL (1.8-2.4); POTASSIUM 4.3 mmol/L (3.5-5.1)
--- NOTE | 2016-12-27 12:10 | PDOC ---
SUBJECTIVE: Continues on skilled services. Doing PT and OT. Feels a little bit better but would like to go home soon. OBJECTIVE: Vital signs noted 76-year-old in no acute distress Neck was supple Tongue was moist Throat was clear Lungs clear to auscultation, slight cough noted Cardiovascular Regular rhythm and rate extremities without edema Vital Signs: Vital Signs Date Time Temp Pulse Resp B/P (MAP) Pulse Ox O2 Delivery O2 Flow Rate FiO2 12/27/16 08:38 97.6 73 20 142/84 (103) 93 Room Air I & O Intake and Output 12/27/16 07:00 Intake Total 480 ml Balance 480 ml Intake Oral 480 ml # Voids 4 Labs: Laboratory Tests Test 12/26/16 06:04 12/27/16 09:15 Sodium Level 134 mmol/L (136-145) 133 mmol/L (136-145) Potassium Level 3.2 mmol/L (3.5-5.1) 4.3 mmol/L (3.5-5.1) Chloride Level 96 mmol/L (98-107) 98 mmol/L (98-107) Carbon Dioxide Level 27 mmol/L (21-32) 31 mmol/L (21-32) Anion Gap 11 (6-14) 4 (6-14) Blood Urea Nitrogen 9 mg/dL (7-20) 9 mg/dL (7-20) Creatinine 0.9 mg/dL (0.6-1.0) 0.9 mg/dL (0.6-1.0) Estimated GFR (Cockcroft-Gault) 61.0 61.0 BUN/Creatinine Ratio 10 (6-20) Glucose Level 107 mg/dL (70-99) 138 mg/dL (70-99) Calcium Level 9.0 mg/dL (8.5-10.1) 9.1 mg/dL (8.5-10.1) Magnesium Level 1.6 mg/dL (1.8-2.4) 1.7 mg/dL (1.8-2.4) Total Bilirubin 1.1 mg/dL (0.2-1.0) Aspartate Amino Transf (AST/SGOT) 31 U/L (15-37) Alanine Aminotransferase (ALT/SGPT) 33 U/L (14-59) Alkaline Phosphatase 122 U/L (46-116) Total Protein 6.8 g/dL (6.4-8.2) Albumin 3.3 g/dL (3.4-5.0) Albumin/Globulin Ratio 0.9 (1.0-1.7) Physical Exam: See above ASSESSMENT: #1 hypomagnesemia-replace #2 hypokalemia resolved #3 weakness-continues with PT and OT #4 hyponatremia secondary to hydrochlorothiazide and several beers night. This, this has resolved off of the HCTZ #5 fall risk #6 COPD 7 tobacco use disorder PLAN: Start plan for discharge. Advised her that she still needs to quit smoking but she does not plan to do so. She will most likely go back to drinking beer at night. Will not continue with the HCTZ. We'll need to go home on a magnesium supplement. We'll monitor the potassium for the next couple of days but off of the HCTZ will most likely not need replacement. A new PT and OT. PAIGE ANDERSON DO Dec 27, 2016 12:10
[2016-12-27 19:28] VITALS: BP 152/70
[2016-12-27] MEDS ORDERED: LOPERAMIDE 2 MG CAPSULE PO PRN (20:15)
[2016-12-27] MEDS: ATORVASTATIN CALCIUM 20 MG TABLET PO SCH (20:19)
[2016-12-27] MEDS: FAMOTIDINE 20 MG TABLET PO SCH (20:19)
[2016-12-28 06:30] VITALS: BP 131/82
[2016-12-28] MEDS: guaiFENesin DM 600/30MG 1 TAB TAB.ER.12H PO SCH ×2 (08:20→20:01)
[2016-12-28] MEDS: MAGNESIUM OXIDE 400 MG TABLET PO SCH ×3 (08:20→16:52)
[2016-12-28] MEDS: METOPROLOL TART IMMED RELEASE 50 MG TABLET PO SCH ×2 (08:22→20:02)
[2016-12-28] MEDS: LOSARTAN 50 MG TABLET. PO SCH (08:23)
[2016-12-28] MEDS: POTASSIUM CHLORIDE 20 MEQ TABLET.ER. PO SCH ×2 (08:23→20:01)
[2016-12-28] MEDS: amLODIPine BESYLATE 5 MG TABLET PO SCH (08:27)
--- NOTE | 2016-12-28 11:30 | NUR ---
Swing Bed Nursing Note Patient Handbook for [facility] given to patient. Nursing Problem: Pt here for PT/OT services for gait training due to weakness, poor balance and coordination. Cognitive/Behavioral: Pt is A/0x3 with some forgetfulness at times. Pt is pleasant and cooperative with care and ADLS this AM. Pt is sitting up on bedside. Pain: Pt denies pain or discomfort at this time. Reported to nurse that she will deny pain medication as she is "not a pill popper". Respiratory Status: Pt has a chronic "smokers cough." States her cough comes and goes. Pt O2 is 93% on room air, and receiving Mucinex BID Skin: Some bruising noted on arms. Skin intact. Bowel/Bladder Continence: Pt is continent of bowel and bladder. Bowel movement 12/27, large loose. ADL Functional Status: Pt requires standby assist while ambulating with walker. Pt with small step/shuffling gait. Pt was independent with toileting and personal hygiene. Pt takes pills whole but one at a time with several sips of water with each pill. Let potassium dissolve and placed in pudding, pt was having difficulty with large pills. Pt states that she cannot wait to be home d/t taking too many pills here. No other complaints at this time.
[2016-12-28] MEDS ORDERED: POTA20TA4 PO (15:48)
[2016-12-28 17:50] VITALS: BP 128/80
--- NOTE | 2016-12-28 19:37 | NUR ---
Swing Bed Nursing Note Patient Handbook for [facility] given to patient. Nursing Problem: Pt here for PT/OT services for gait training due to weakness, poor balance and coordination. Cognitive/Behavioral: Pt is A/0x3 with some forgetfulness at times. Pt is pleasant and cooperative with care and ADLS. Pt is laying in bed watching TV. Pain: Pt denies pain or discomfort at this time. Respiratory Status: Pt has a chronic "smokers cough." Mucinex BID, intermittent coughing report some white phlegm. Skin: Skin intact, with some bruising noted on arms. Bowel/Bladder Continence: Pt is continent of bowel and bladder. Bowel movement 12/28. ADL Functional Status: Pt requires standby assist while ambulating with walker. Pt with small step/shuffling gait. Pt was independent with toileting and personal hygiene. Pt takes pills whole but one at a time with several sips of water with each pill. Let potassium dissolve and placed in pudding, pt was having difficulty with large pills. No other complaints at this time.
[2016-12-28] MEDS: ATORVASTATIN CALCIUM 20 MG TABLET PO SCH (20:01)
[2016-12-28] MEDS: FAMOTIDINE 20 MG TABLET PO SCH (20:01)
[2016-12-29 06:04] VITALS: BP 144/82
[2016-12-29] MEDS: guaiFENesin DM 600/30MG 1 TAB TAB.ER.12H PO SCH (09:27)
[2016-12-29] MEDS: POTASSIUM CHLORIDE 20 MEQ TABLET.ER. PO SCH (09:27)
[2016-12-29] MEDS: LOSARTAN 50 MG TABLET. PO SCH (09:27)
[2016-12-29] MEDS: METOPROLOL TART IMMED RELEASE 50 MG TABLET PO SCH (09:27)
[2016-12-29] MEDS: MAGNESIUM OXIDE 400 MG TABLET PO SCH (09:28)
[2016-12-29 09:31] VITALS: BP 144/82
[2016-12-29] MEDS: amLODIPine BESYLATE 5 MG TABLET PO SCH (09:31)
--- NOTE | 2016-12-29 10:05 | PDOC3 ---
Discharge Summary Visit Information Date of Admission: Dec 22, 2016 Date of Discharge: Dec 29, 2016 Final Diagnosis 1 hypomagnesemia-replace #2 hypokalemia resolved #3 weakness-continues with PT and OT #4 hyponatremia secondary to hydrochlorothiazide and several beers night. This, this has resolved off of the HCTZ #5 fall risk #6 COPD 7 tobacco use disorder Problems: Brief Hospital Course Allergies Allergies Coded Allergies Type Severity Reaction Last Updated Verified No Known Drug Allergies 01/12/16 No Vital Signs Vital Signs Date Time Temp Pulse Resp B/P (MAP) Pulse Ox O2 Delivery O2 Flow Rate FiO2 12/29/16 09:31 80 144/82 12/29/16 07:51 Room Air 12/29/16 06:04 98.4 17 92 Brief Hospital Course Ms. Romo is a 76 old female who presented with profound weakness after hospitalization at [facility] for severe hypo-natremia. In review of her chart hyponatremia may have been due to the combination of hydrochlorothiazide and several beers every evening. She was admitted to [facility] because of weakness and underwent PT and OT. She progressed and improved daily. She did have a low magnesium which was replaced and a low potassium which was replaced. She was delivered typewritten discharge instructions were given to her from [facility]. She was advised not to quit smoking and to limit her beer drinking to one to 2 beers a day as I do not think she will given up. Her hydrochlorothiazide was discontinued. Discharge Information Condition at Discharge: Improved, Stable Follow Up: Weeks (folloe-up in one week to have labs rechecked.) Disposition/Orders: D/C to Home Dischare Medications Current Medications Acetaminophen (Tylenol) 650 mg PRN QID PRN PO PAIN Last administered on 18:26; Start 12/22/16 at 16:30 Amlodipine Besylate (Norvasc) 5 mg DAILY PO Last administered on 12/29/16 09: 31; Start 12/23/16 at 09:00 Docusate Sodium (Colace) 100 mg PRN DAILY PRN PO CONSTIPATION; Start 12/22/16 at 16:30 Famotidine (Pepcid) 20 mg HS PO Last administered on 12/28/16 20:01; Start 12/22/16 at 21:00 Gabapentin (Neurontin) 300 mg PRN DAILY PRN PO neuropathy; Start 12/22/16 at 16: 30 Magnesium Oxide (Magnesium Oxide) 400 mg BID PO Last administered on 12/25/16 19:48; Start 12/22/16 at 21:00; Stop 12/26/16 at 07:47; Status DC Metoprolol Tartrate (Lopressor) 50 mg BID PO Last administered on 12/29/16 09: 27; Start 12/22/16 at 21:00 Tramadol HCl (Ultram) 50 mg PRN Q6HRS PRN PO PAIN Last administered on 04:01; Start 12/22/16 at 16:30 Atorvastatin Calcium (Lipitor) 80 mg QHS PO Last administered on 12/28/16 20: 01; Start 12/22/16 at 21:00 Losartan Potassium (Cozaar) 100 mg DAILY PO Last administered on 12/29/16 09: 27; Start 12/23/16 at 09:00 Artificial Tears (Artificial Tears) 1 drop PRN Q15MIN PRN OU DRY EYE; Start 12/23/16 at 12:45 Guaifenesin (MUCINEX ER with DM) 1 tab BID PO Last administered on 12/29/16 09 :27; Start 12/25/16 at 09:00 Albuterol/ Ipratropium (Duoneb) 3 ml RTQID PRN NEB WHEEZING; Start 12/25/16 at 07:30 Albuterol/ Ipratropium (Duoneb) 3 ml 1X ONCE NEB ; Start 12/25/16 at 07:30; Stop 12/25/16 at 07:34; Status DC Potassium Chloride (Klor-Con) 40 meq BID PO Last administered on 12/25/16 08: 07; Start 12/25/16 at 09:00; Stop 12/25/16 at 09:10; Status DC Potassium Chloride (Klor-Con) 20 meq BID PO Last administered on 12/25/16 19: 48; Start 12/25/16 at 21:00; Stop 12/26/16 at 07:47; Status DC Magnesium Oxide (Magnesium Oxide) 400 mg TIDAC PO Last administered on 09:28; Start 12/26/16 at 08:00 Potassium Chloride (Klor-Con) 40 meq BID PO ; Start 12/26/16 at 07:45; Status Cancel Potassium Chloride (Klor-Con) 40 meq BID PO Last administered on 12/29/16 09: 27; Start 12/26/16 at 09:00 Loperamide HCl (Imodium) 2 mg PRN Q4HRS PRN PO DIARRHEA Last administered on 20:19; Start 12/27/16 at 20:15 Active Scripts Active Reported Tramadol Hcl (Tramadol HCl) 50 Mg Tablet 50 Mg PO PRN Q6HRS PRN Norvasc (Amlodipine Besylate) 5 Mg Tablet 1 Tab PO DAILY Metoprolol Tartrate 50 Mg Tablet 1 Tab PO BID Magnesium Oxide 400 Mg Tablet 1 Tab PO BID Cozaar (Losartan Potassium) 100 Mg Tablet 100 Mg PO DAILY Gabapentin 300 Mg Capsule 300 Mg PO DAILY PRN Pepcid (Famotidine) 20 Mg Tablet 20 Mg PO HS Lovenox (Enoxaparin Sodium) 40 Mg/0.4 Ml Disp.syrin 40 Mg SQ DAILY Colace (Docusate Sodium) 100 Mg Capsule 1 Cap PO DAILY PRN Atorvastatin Calcium 80 Mg Tablet 1 Tab PO HS Tylenol (Acetaminophen) 325 Mg Tablet 2 Tab PO QID PRN Patient Instructions Patient Instuctions see [facility] PAIGE Martinez DO Dec 29, 2016 10:05
--- NOTE | 2016-12-29 11:02 | NUR ---
Discharge Note: GABRIEL NEWTON Discharge instructions and discharge home medications reviewed with Patient and a copy given. All questions have been answered and understanding verbalized. The following instructions and handouts were given: MEDICATIONS, FOLLOW UP INSTRUCTIONS, AND EDUCATIONAL HANDOUTS GIVEN. Discontinued lines and drains: NO PERIPHERAL IV TO DISCONTINUE Patient discharged to HOME with FAMILY via [facility]
== END 2016-12-29 11:04 | disposition home health service (06) | DRG 641 ==
LOC: LND 15:54
PROVIDERS: ADMIT Internal Medicine; ATTEND Internal Medicine
DX: E83.42 Hypomagnesemia (principal); E87.1 Hypo-osmolality and hyponatremia; T50.2X5A Adverse effect of carbonic-anhydrase inhibitors, benzothiadiazides and other diuretics, initial encounter; E87.6 Hypokalemia; J44.9 Chronic obstructive pulmonary disease, unspecified; Z72.0 Tobacco use; Z91.81 History of falling; Y92.89 Other specified places as the place of occurrence of the external cause; I10 Essential (primary) hypertension
CPT/HCPCS: 36415; 80048; 80053; 83735; 85027; 97110; 97116; 97530; 97535

== ENCOUNTER 2017-01-12 11:05 | Emergency (ER) | payer MEDICARE ==
[~2017-01-12] VITALS: Ht 309.9 cm; Wt 54.4 kg
[~2017-01-12 11:05] MED LIST changes: +POTA20TA4 PO
[2017-01-12 11:16] VITALS: BP 154/61
[2017-01-12 11:44] LABS: BASO # 0.1 x10^3/uL (0.0-0.2); BASO % 1 % (0-3); EOS # 0.5 x10^3/uL (0.0-0.7); EOS % 8 % (0-3); HEMATOCRIT 35.2 % (36.0-47.0); HEMOGLOBIN 12.1 g/dL (12.0-15.5); LYMPH # 1.7 x10^3/uL (1.0-4.8); LYMPH % 26 % (24-48); MEAN CORPUSCULAR HEMOGLOBIN 32 pg (25-35); MEAN CORPUSCULAR HGB CONC 35 g/dL (31-37); MEAN CORPUSCULAR VOLUME 92 fL (79-100); MONO # 0.5 x10^3/uL (0.0-1.1); MONO % 8 % (0-9); NEUT # 3.8 x10^3uL (1.8-7.7); NEUT % 58 % (31-73); PLATELET COUNT 281 x10^3/uL (140-400); RED BLOOD COUNT 3.83 x10^6/uL (3.50-5.40); RED CELL DISTRIBUTION WIDTH 13.8 % (11.5-14.5); WHITE BLOOD COUNT 6.6 x10^3/uL (4.0-11.0)
[2017-01-12 12:02] LABS: ALBUMIN 3.7 g/dL (3.4-5.0); ALBUMIN/GLOBULIN RATIO 0.9 (1.0-1.7); CALCIUM 9.6 mg/dL (8.5-10.1); CREATININE 1.3 mg/dL (0.6-1.0); GFR 39.9; POTASSIUM 4.8 mmol/L (3.5-5.1); TOTAL BILIRUBIN 0.7 mg/dL (0.2-1.0); TOTAL PROTEIN 7.7 g/dL (6.4-8.2)
--- NOTE | 2017-01-12 12:21 | PHYS DOC ---
General Chief Complaint: WEAKNESS/GENERALIZED Stated Complaint: TIRED/SODIUM CONCERNS Time Seen by MD: 11:15 Source: patient Exam Limitations: no limitations Problems: History of Present Illness Initial Comments Patient is a 76-year-old female brought to the ED by her friend for possible weakness and hyponatremia. Patient states that she has come to the ED to appease her friend and her son. She states that her son is in town he is anxious about her recent health issues. Patient was admitted to the hospital 3 weeks ago with hyponatremia and weakness. She says she's been feeling well since then and has no complaints. Patient's son felt like the patient was slurring when he came in from mowing and he notified the patient's friend. The patient denies any weakness headache or slurring but has come for blood tests to make her family feel better. Patient denies any complaints. Timing/Duration: unsure Severity: mild Modifying Factors: improves with other Associated Symptoms: denies symptoms Allergies: Coded Allergies: Penicillins (Verified Allergy, Unknown, 01/12/17) Past Medical History Medical History: other (hypertension) Surgical History: noncontributory Social History Smoker: cigarettes Alcohol: other (2 beers daily) Drugs: none Review of Systems Constitutional: denies chills, denies fever Respiratory: denies cough, denies shortness of breath Cardiovascular: denies chest pain, denies palpitations Gastrointestinal: denies nausea, denies vomiting Genitourinary: denies frequency, denies hematuria Musculoskeletal: denies back pain, denies joint swelling, denies neck pain Psychiatric/Neurological: denies headache, denies numbness, denies paresthesia Physical Exam General Appearance: no apparent distress, thin Eyes: bilateral eye normal inspection, bilateral eye PERRL, bilateral eye EOMI Ear, Nose, Throat: hearing grossly normal, normal ENT inspection Neck: non-tender, supple Respiratory: normal breath sounds, no respiratory distress Cardiovascular: normal peripheral pulses (he'll be fine by the time he gets down there), regular rate, rhythm Gastrointestinal: non tender, soft Back: no CVA tenderness, no vertebral tenderness Extremities: non-tender (1), normal inspection Neurologic/Psychiatric: fruit cutter II-XII nml as tested, no motor/sensory deficits, alert, normal mood/affect, oriented x 3 Skin: normal color, warm/dry Orders, Labs, Meds EKG: Normal sinus rhythm 80 bpm, baseline wander artifact noted no STEMI criteria. Interpreted by Dr. Cha. PATIENT: GABRIEL NEWTON ACCOUNT: [id number] : 1940 LOCATION: ER AGE: 76 SEX: F EXAM STATUS: REG ER ORD. PHYSICIAN: ZITA CHA DO REASON: fatigue PROCEDURE: PORTABLE CHEST 1V AP chest radiograph 01/12/2017 Indication: Fatigue: Comparison: Chest radiograph 12/14/2016. Findings: There is tortuosity of the thoracic aorta with calcified plaque. Partial visualization of an upper abdominal thoracic aortic stent. Cardiac and mediastinal silhouettes are within normal limits. No pleural effusion, pneumothorax or focal consolidation. There is a 2.0 cm oval radiopaque density at the level of the gastric body. Impression: 1. No acute cardiopulmonary abnormality. 2. 2.0 cm radiopaque density projected over the gastric body. Findings may be external to the patient, ingested medication, though foreign body cannot be excluded. Clinical correlation is recommended. DICTATED AND SIGNED BY: RONNY NAIR MD DATE: 01/12/17 1202 CC: MONIQUE HARRINGTON MD; ZITA CHA DO ~ Sodium 132, BUN 8, creatinine 1.3, BNP 644 No focal neuro deficits were observed throughout the patient's ED course. Labs and urine were unremarkable. I discussed findings with the patient as well as follow-up instructions she expressed agreement and understanding with the treatment plan. Departure Time of Disposition: 12:47 Disposition: HOME, SELF-CARE Diagnosis: screening exam, mild hyponatremia/renal insufficie Condition: STABLE Patient Instructions: Chronic Renal Insufficiency, Hyponatremia, [id number] Additional Instructions: As discussed your sodium today was 132, low normal at this lab is 136. Stop smoking seek medical assistance if necessary. Continue current indications and treatments. Follow-up with your doctor on Sunday for recheck. Return to the ED with new or changing symptoms. ZITA CHA DO Jan 12, 2017 12:21
[2017-01-12 12:28] LABS: BARBITURATES NEG (NEG); BENZODIAZEPINES NEG (NEG); CANNABINOIDS NEG (NEG); COCAINE NEG (NEG); METHADONE NEG (NEG); OPIATES NEG (NEG); PHENCYCLIDINE NEG (NEG)
[2017-01-12 12:29] LABS: AMPHETAMINE/METHAMPHETAMINE NEG (NEG)
[2017-01-12 12:30] LABS: BACTERIA,URINE 0 /HPF (0-FEW); BILIRUBIN,URINE NEG (NEG); CLARITY,URINE CLEAR; COLOR,URINE STRAW; GLUCOSE,URINE NEG (NEG); NITRITE,URINE NEG (NEG); RBC,URINE 0 /HPF (0-2); UROBILINOGEN,URINE 0.2 mg/dL (0.2 mg/dL); WBC,URINE 0 /HPF (0-4)
[2017-01-12 12:31] LABS: SQUAMOUS EPITHELIAL CELL,UR OCC /LPF
--- NOTE | 2017-01-12 14:30 | EKG ---
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
== END 2017-01-12 12:57 | disposition home or self-care (01) ==
LOC: ER 11:05
DX: Z00.00 Encounter for general adult medical examination without abnormal findings (principal); E87.1 Hypo-osmolality and hyponatremia; I10 Essential (primary) hypertension; F17.210 Nicotine dependence, cigarettes, uncomplicated; Z88.0 Allergy status to penicillin
CPT/HCPCS: 36415; 71010; 80053; 80307; 81001; 82550; 83735; 83880; 84484; 85027; 93005; 99285-25; G0479

== ENCOUNTER → 2017-03-26 | Outpatient (CLI) | payer MEDICARE, BC ==
[~2017-03-26] MED LIST changes: +METO-239 PO; -METO25TA9 PO
--- NOTE | 2017-03-26 13:44 | RAD ---
CHEST PA LATERAL Clinical History: CHEST CONGESTION W COUGH X 3 WKS Technique: AP view of the chest was obtained at 03/26/2017 2:00 AM. Comparison: 01/12/17". Findings: The cardiomediastinal silhouette is normal. Ectatic tortuous aorta with atheromatous calcification of the aortic knob The pulmonary vasculature is normal. The lungs and pleural margins are clear. Impression: No evidence of an acute cardiopulmonary process.
== END | disposition home or self-care (01) ==
LOC: DXRADRC 13:18
PROVIDERS: ATTEND Physician Assistant Medical
DX: R09.89 Other specified symptoms and signs involving the circulatory and respiratory systems (principal); R05 Cough; I70.0 Atherosclerosis of aorta
CPT/HCPCS: 71020

== ENCOUNTER → 2017-06-20 | Outpatient (CLI) | payer MEDICARE ==
[~2017-06-20] MED LIST changes: +IOHEXOL 300 MG/ML 75 ML VIAL. IV ONE; +IOHEXOL 300 MG/ML 75 ML VIAL. ONE; -METO50TA2 PO; +METO50TA6 PO
--- NOTE | 2017-06-20 10:10 | RAD ---
CT abdomen/pelvis with contrast 06/20/2017 Indication: Iron deficiency anemia. Comparison: CT angiography abdomen and pelvis 01/14/2016. Technique: Multiple axial CT images of the abdomen and pelvis were obtained after the intravenous administration of 75 cc nonionic contrast. Coronal and sagittal reformats are provided. Findings: Lung bases are clear. Heart size is within normal limits. No suspicious hepatic lesions are identified. There is focal fatty infiltration adjacent to the fissure of the ligamentum teres. Calcifications within the spleen likely represents sequela of prior granulomatous exposure. Adrenal glands are normal in appearance. No suspicious pancreatic lesion is identified. There is minimal prominence of the main pancreatic duct measuring 1.7 mm. Gallbladder is present without adjacent inflammatory changes. 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 An aortobiiliac stent graft is present. The [place] infrarenal abdominal aorta measures 4.2 x 5.1 cm (AP by transverse, previously measuring 4.3 x 5.5 cm on 01/14/2016. Moderate atherosclerotic changes are present. There is mild stenosis of the celiac axis secondary to calcified atheromatous plaque. 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 A raj hepatis lymph node measures 6.4 mm by short axis. There are no pathologically enlarged lymph nodes in the abdomen or pelvis. There is no free fluid or free intraperitoneal air. There is mild cortical thinning involving the kidneys. There is a 5 mm hypodense lesion in the inferior anterior right kidney suggestive of a simple cyst. No suspicious renal masses are identified. There is no hydronephrosis. Small extrarenal pelvis is noted involving each kidney. Small and large bowel are normal in caliber. No evidence for bowel obstruction. There is mild colonic diverticulosis without adjacent inflammatory changes to suggest diverticulitis. There is significant gastric wall thickening, asymmetrically involving the greater curvature. Findings are most prominent within the cardia and proximal fundus. There is a gastrohepatic lymph node measuring 8 mm by short axis. There is mild circumferential wall thickening involving the rectum. This area is not well evaluated by CT. No suspicious pelvic masses are identified. Urinary bladder is within normal limits given degree of distention. There is a right inguinal hernia with large bowel extending into the ostia. No suspicious osseous lesions are identified. Impression: 1. There is circumferential gastric wall thickening, asymmetrically involving the greater curvature the region of the cardia and fundus. Further evaluation with endoscopy is recommended to evaluate for underlying neoplasm. Differential considerations would include gastric malignancy versus gastritis versus underdistention. An 8 mm gastrohepatic lymph node is present. 2. There is mild superolateral thickening involving the rectum and anus. Correlation with direct visualization is recommended as this is not well evaluated by CT. 3. Mild cortical thinning involving the kidneys. Correlation with medical renal disease is recommended. No suspicious renal mass is identified. 4. Abdominal aortic aneurysm status post endovascular treatment with aortobiiliac stent graft. There is interval decrease in size of the [place] lumen previously measuring 4.3 x 5.5 cm and currently measuring 4.2 x 5.1 cm. There is suggestion of aneurysm/ectasia involving the descending thoracic aorta. PQRS Compliance Statement: One or more of the following individualized dose reduction techniques were utilized for this examination: 1. Automated exposure control 2. Adjustment of the mA and/or kV according to patient size 3. Use of iterative reconstruction technique
== END | disposition home or self-care (01) ==
LOC: CT 09:09
PROVIDERS: ATTEND Physician Assistant Medical
DX: K57.30 Diverticulosis of large intestine without perforation or abscess without bleeding (principal); D51.9 Vitamin B12 deficiency anemia, unspecified; E87.5 Hyperkalemia; I71.4 Abdominal aortic aneurysm, without rupture; D73.89 Other diseases of spleen; I70.0 Atherosclerosis of aorta; F17.200 Nicotine dependence, unspecified, uncomplicated
CPT/HCPCS: 36415; 74177; 84075; Q9967

== ENCOUNTER → 2018-01-29 | Outpatient (CLI) | payer MEDICARE ==
[~2018-01-29] MED LIST changes: -IOHEXOL 300 MG/ML 75 ML VIAL. IV ONE; -IOHEXOL 300 MG/ML 75 ML VIAL. ONE
--- NOTE | 2018-01-30 14:17 | RAD ---
History: Routine screening. Technique: Bilateral digital mammographic routine views were obtained with CAD - computer aided detection. Comparison: 08/08/2016, 08/25/2014, 05/30/2013. Findings: Breast Tissue Density C : The breast tissue is heterogeneously dense. Scattered fibroglandular elements may obscure underlying pathology. There are no suspicious masses, microcalcifications or areas of architectural distortion. Impression: No suspicious findings. Recommendation: In the absence of new clinical symptoms or change in physical exam, annual screening mammography is recommended. BI-RADS Category 1: Negative. Your mammogram demonstrates that you have dense breast tissue, which could hide abnormalities, and if you have other risk factors for breast cancer that have been identified, you might benefit from supplemental screening tests that may be suggested by your ordering physician. Dense breast tissue, in and of itself, is a relatively common condition. This information is not provided to cause undue concern, but rather to raise your awareness and to promote discussion with your physician regarding the presence of other risk factors, in addition to dense breast tissue. A report of your mammography results will be sent to you and your physician. You should contact your physician if you have any questions or concerns regarding this report. A mammogram does not have 100% sensitivity and therefore a negative imaging study should not delay further work up of a suspicious abnormality. The patient will receive a letter with the results in the mail. Patient information is entered into the reminder system with a target due date for the next screening mammogram. The patient will receive a reminder. "Our facility is accredited by the [employer] Mammography Program."
== END | disposition home or self-care (01) ==
LOC: MAMMO 12:44
PROVIDERS: ATTEND Physician Assistant Medical
DX: Z12.31 Encounter for screening mammogram for malignant neoplasm of breast (principal); E78.5 Hyperlipidemia, unspecified; E87.5 Hyperkalemia; J44.9 Chronic obstructive pulmonary disease, unspecified; I10 Essential (primary) hypertension; Z86.2 Personal history of diseases of the blood and blood-forming organs and certain disorders involving the immune mechanism; Z87.891 Personal history of nicotine dependence
CPT/HCPCS: 77067

== ENCOUNTER → 2018-11-18 | Outpatient (CLI) | payer MEDICARE ==
--- NOTE | 2018-11-18 11:57 | RAD ---
EXAM: ABDOMINAL ULTRASOUND. HISTORY: Elevated liver enzymes. COMPARISON: 06/20/2017. FINDINGS: Sonographic evaluation of the abdomen was performed. Scattered tiny hyperechoic foci within the liver are nonspecific, but can be seen in the setting of inflammation. No focal masses are identified. The spleen measures 10.2 cm. The gallbladder is contracted. There are no stones, pericholecystic fluid or wall thickening. There is no sonographic Weston sign. The common duct measures 4 mm. The pancreas is not well visualized. Limited images of the pancreatic head reveal no abnormality. The right kidney measures 10.1 cm. Cortical thinning is noted at the upper pole. There is no hydronephrosis. The left kidney measures 9.8 cm. Cortical thickness and echogenicity are preserved. There is no hydronephrosis. There is a suprarenal abdominal aortic aneurysm. Its suprarenal portion, it measures 3.9 x 3.7 cm. More distally, there are changes of endoluminal repair. Maximum infrarenal diameter appears to be 3.4 cm. The inferior vena cava is patent. IMPRESSION: 1. Scattered tiny hyperechoic foci in the liver are nonspecific, but can be seen in the setting of hepatitis. Correlate with other clinical data. 2. Contracted gallbladder. No evidence of acute cholecystitis. 3. Suprarenal abdominal aortic aneurysm status post endoluminal repair infrarenally. 4. Right renal cortical thinning is consistent with mild atrophy. Electronically signed by: Olivia Camarillo MD (11/18/2018 11:54 AM) [facility]
== END | disposition home or self-care (01) ==
LOC: US 09:58
PROVIDERS: ATTEND Physician Assistant Medical
DX: K82.0 Obstruction of gallbladder (principal); I71.4 Abdominal aortic aneurysm, without rupture; N26.1 Atrophy of kidney (terminal); Z98.890 Other specified postprocedural states
CPT/HCPCS: 76700

== ENCOUNTER 2021-08-23 06:52 | Emergency (ER) | payer MEDICARE ==
[~2021-08-23] VITALS: Ht 157.5 cm; Wt 44.5 kg
[~2021-08-23 06:52] MED LIST changes: +IRBE75TA16 PO; -IRBE75TA3 PO; -MAGN400T3 PO; +MAGN400T48 PO; +POTA-121 PO; -POTA20TA4 PO
[2021-08-23] MEDS ORDERED: IV NORMAL SALINE 500ML 500 ML IV ONE (07:30)
[2021-08-23] MEDS ORDERED: IV NORMAL SALINE 500ML 500 ML ONE (07:33)
--- NOTE | 2021-08-23 07:37 | EKG ---
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
[2021-08-23 07:44] LABS: BASO # 0.1 x10^3/uL (0.0-0.2); BASO % 1 % (0-3); EOS # 0.1 x10^3/uL (0.0-0.7); EOS % 1 % (0-3); HEMATOCRIT 35.9 % (36.0-47.0); HEMOGLOBIN 12.6 g/dL (12.0-15.5); LYMPH % 13 % (24-48); MEAN CORPUSCULAR HEMOGLOBIN 30 pg (25-35); MEAN CORPUSCULAR HGB CONC 35 g/dL (31-37); MEAN CORPUSCULAR VOLUME 86 fL (79-100); MONO # 0.4 x10^3/uL (0.0-1.1); MONO % 6 % (0-9); NEUT # 5.8 x10^3uL (1.8-7.7); NEUT % 79 % (31-73); PLATELET COUNT 177 x10^3/uL (140-400); RED BLOOD COUNT 4.16 x10^6/uL (3.50-5.40); RED CELL DISTRIBUTION WIDTH 13.4 % (11.5-14.5); WHITE BLOOD COUNT 7.4 x10^3/uL (4.0-11.0)
--- NOTE | 2021-08-23 08:10 | RAD ---
CT HEAD AND C-SPINE WO Date: 08/23/2021 7:49 AM Clinical Indication: fall, head injury, pain Comparison: None. Technique: 5 mm axial tomographic images were obtained of the head without contrast. These were view ed on brain and bone windows. Noncontrast CT of the cervical spine was performed. Sagittal and dumont l reformats were performed and evaluated. One or more of the following dose reduction techniques were utilized: Automated exposure control (AEC), Adjustment of mA and/or kV according to patient size, Us e of iterative reconstruction technique such as ASiR, CT scan done according to ALARA and image gentl y/image wisely HEAD FINDINGS: Right parietal extra-axial hemorrhage with lentiform morphology measuring 2.5 cm in thickness. Centra lly the hemorrhage is more isoattenuating. Mass effect on underlying parenchyma. No midline shift. Mild generalized cerebral and cerebellar volume loss. Mild nonspecific periventricular hypoattenuatio n, most commonly seen with chronic small vessel ischemic disease. No intra- or extra-axial mass or fluid collection. No acute hemorrhage. The ventricles are normal in size, shape, and morphology. The beltrán-white matter junction is normal. The basilar cisterns are paten t. The visualized paranasal sinuses are normal. The visualized portions of the orbits and globes are no rmal. The mastoid air cells are clear. No aggressive osseous lesion or fracture. CERVICAL SPINE FINDINGS: The cervical spine is normally aligned. No acute fracture. No aggressive lytic or blastic osseous les ions. Mild multilevel degenerative disc space height loss. Multilevel mild spinal canal stenosis secondary to disc protrusions and marginal osteophytes. Multilevel mild and moderate neuroforaminal narrowing s econdary to uncovertebral arthrosis. Multilevel mild and moderate facet arthrosis. The thyroid gland is normal. No cervical lymphadenopathy. Bilateral carotid atherosclerosis. The visu alized aerodigestive tract is normal. The visualized portions of the lungs are clear. IMPRESSION: 1. Right parietal extra-axial hemorrhage measuring 2.5 cm in thickness with lentiform morphology, con cerning for epidural hematoma. Centrally the hemorrhage is more isoattenuating, which might be seen w ith degrading blood products (subacute) but can also be seen in the setting of brisk active bleeding, which is frequently associated with epidural hemorrhages. Mass effect on underlying parenchyma with no midline shift. 2. No acute cervical spine fracture. FOR INTERNAL CODING PURPOSES Critical result: Findings discussed with AMARIS MADRIGAL MD at 08/23/2021 7:52 AM. RESULT CODE: (C) Electronically signed by: Jaziel Jeffries MD (08/23/2021 8:07 AM) [id number]
[2021-08-23 08:33] LABS: ALBUMIN 3.4 g/dL (3.4-5.0); ALBUMIN/GLOBULIN RATIO 0.9 (1.0-1.7); CALCIUM 9.5 mg/dL (8.5-10.1); CREATININE 1.2 mg/dL (0.6-1.0); GFR 43.2; MAGNESIUM 2.2 mg/dL (1.8-2.4); PHOSPHORUS 3.6 mg/dL (2.6-4.7); POTASSIUM 3.4 mmol/L (3.5-5.1); TOTAL BILIRUBIN 0.9 mg/dL (0.2-1.0); TOTAL PROTEIN 7.1 g/dL (6.4-8.2)
--- NOTE | 2021-08-23 08:48 | PHYS DOC ---
Past History Past Medical History: Hypertension Additional Past Medical Histor: ABDOMINAL AORTIC ANEURYSM Past Surgical History: Other Additional Past Surgical Histo: ENDOVASCULAR ABDOMINAL AORTIC ANEURYSM REPAIR Alcohol Use: None Drug Use: None General Adult EDM: Chief Complaint: DIZZY/LIGHT HEADED HPI: HPI: Patient is a 81-year-old female brought in by EMS from home for numerous complaints. Patient states she has been having falls. She has been feeling lightheaded. Patient is a poor historian unable to say how many fall she has had or what her last one was, but does complain of a bump on the back of her head. Patient states she was recently started on a diuretic that starts with a "H" 2 weeks ago by primary care provider for lower extremity edema. Patient states lower extremity edema has resolved, but she was told to keep taking the medication. Patient describes any history of heart failure or renal disease. Patient has a history of COPD but does not use home oxygen. Denies any blood thinners. EMS was called by patient's sister. Patient feels like she might be dehydrated, states she drinks about 4 cups of coffee a day, soda, and about 32 ounces of water. Review of Systems: Review of Systems: All other systems within normal limits except for as noted in the HPI Current Medications: Current Meds: Current Medications Medications (Trade) Dose Ordered Sig/Kaleb Start Time Stop Time Status Last Admin Dose Admin Sodium Chloride 500 ml @ As Directed STK-MED ONCE 08/23/21 07:33 08/23/21 07:33 DC Allergies: Allergies: Allergies Coded Allergies Type Severity Reaction Last Updated Verified Penicillins Allergy Unknown 08/23/21 Yes Physical Exam: PE: Constitutional: Well developed, well nourished, no acute distress, non-toxic appearance. [] HENT: Normocephalic, hematoma to right occiput, bilateral external ears normal, nose normal. Dry mucous membrane [] Eyes: PERRLA, conjunctiva normal, no discharge. [] Neck: No rigidity, supple, no stridor. [] Cardiovascular: Regular rate and rhythm, brisk cap refill [] Lungs & Thorax: Non labored symmetric respirations, no tachypnea or respiratory distress [] Abdomen: Soft, nondistended. Skin: Warm, dry, no erythema, no rash. Skin tenting [] Back: Unremarkable Extremities: No deformities, range of motion grossly intact, no lower extremity edema. No tenderness to palpation of extremities [] Neurologic: Alert and oriented, no focal deficits noted. [] Psychologic: Affect normal, judgement normal, mood normal. [] Current Patient Data: Labs: Laboratory Tests Test 08/23/21 07:20 08/23/21 07:55 White Blood Count 7.4 x10^3/uL (4.0-11.0) Red Blood Count 4.16 x10^6/uL (3.50-5.40) Hemoglobin 12.6 g/dL (12.0-15.5) Hematocrit 35.9 % (36.0-47.0) L Mean Corpuscular Volume 86 fL (79-100) Mean Corpuscular Hemoglobin 30 pg (25-35) Mean Corpuscular Hemoglobin Concent 35 g/dL (31-37) Red Cell Distribution Width 13.4 % (11.5-14.5) Platelet Count 177 x10^3/uL (140-400) Neutrophils (%) (Auto) 79 % (31-73) H Lymphocytes (%) (Auto) 13 % (24-48) L Monocytes (%) (Auto) 6 % (0-9) Eosinophils (%) (Auto) 1 % (0-3) Basophils (%) (Auto) 1 % (0-3) Neutrophils # (Auto) 5.8 x10^3uL (1.8-7.7) Lymphocytes # (Auto) 1.0 x10^3/uL (1.0-4.8) Monocytes # (Auto) 0.4 x10^3/uL (0.0-1.1) Eosinophils # (Auto) 0.1 x10^3/uL (0.0-0.7) Basophils # (Auto) 0.1 x10^3/uL (0.0-0.2) Prothrombin Time 10.4 SEC (9.4-11.4) Prothrombin Time INR 1.0 (0.9-1.1) Troponin I High Sensitivity 9 ng/L (4-50) Vital Signs: Vital Signs Date Time Temp Pulse Resp B/P (MAP) Pulse Ox O2 Delivery O2 Flow Rate FiO2 08/23/21 08:00 59 18 108/55 (72) 91 Room Air 08/23/21 06:54 98.2 EKG: EKG: Sinus rhythm, heart rate 60 beats minute, normal axis, no apparent ST elevation or depression although baseline sort of scared by artifact. [] Radiology/Procedures: Radiology/Procedures: [address] [address] IMAGING REPORT Signed PATIENT: GABRIEL NEWTON AACCOUNT: [id number] : 1940 LOCATION: ER AGE: 81 SEX: F EXAM STATUS: REG ER ORD. PHYSICIAN: AMARIS MADRIGAL MD REASON: fall, head injury PROCEDURE: CT HEAD AND CERVICAL SPINE WO CT HEAD AND C-SPINE WO Date: 08/23/2021 7:49 AM Clinical Indication: fall, head injury, pain Comparison: None. Technique: 5 mm axial tomographic images were obtained of the head without contrast. These were viewed on brain and bone windows. Noncontrast CT of the cervical spine was performed. Sagittal and coronal reformats were performed and evaluated. One or more of the following dose reduction techniques were utilized: Automated exposure control (AEC), Adjustment of mA and/or kV according to patient size, Use of iterative reconstruction technique such as ASiR, CT scan done according to ALARA and image gently/image wisely HEAD FINDINGS: Right parietal extra-axial hemorrhage with lentiform morphology measuring 2.5 cm in thickness. Centrally the hemorrhage is more isoattenuating. Mass effect on underlying parenchyma. No midline shift. Mild generalized cerebral and cerebellar volume loss. Mild nonspecific periventricular hypoattenuation, most commonly seen with chronic small vessel ischemic disease. No intra- or extra-axial mass or fluid collection. No acute hemorrhage. The ventricles are normal in size, shape, and morphology. The beltrán-white matter junction is normal. The basilar cisterns are patent. The visualized paranasal sinuses are normal. The visualized portions of the orbits and globes are normal. The mastoid air cells are clear. No aggressive osseous lesion or fracture. CERVICAL SPINE FINDINGS: The cervical spine is normally aligned. No acute fracture. No aggressive lytic or blastic osseous lesions. Mild multilevel degenerative disc space height loss. Multilevel mild spinal canal stenosis secondary to disc protrusions and marginal osteophytes. Multilevel mild and moderate neuroforaminal narrowing secondary to uncovertebral arthrosis. Multilevel mild and moderate facet arthrosis. The thyroid gland is normal. No cervical lymphadenopathy. Bilateral carotid atherosclerosis. The visualized aerodigestive tract is normal. The visualized portions of the lungs are clear. IMPRESSION: 1. Right parietal extra-axial hemorrhage measuring 2.5 cm in thickness with lentiform morphology, concerning for epidural hematoma. Centrally the hemorrhage is more isoattenuating, which might be seen with degrading blood products (subacute) but can also be seen in the setting of brisk active bleeding, which is frequently associated with epidural hemorrhages. Mass effect on underlying parenchyma with no midline shift. 2. No acute cervical spine fracture. FOR INTERNAL CODING PURPOSES Critical result: Findings discussed with AMARIS MADRIGAL MD at 08/23/2021 7:52 AM. RESULT CODE: (C) Electronically signed by: Jordan Jeffries MD (08/23/2021 8:07 AM) [id number] DICTATED AND SIGNED BY: JORDAN JEFFRIES MD DATE: 08/23/21 0750 CC: AMARIS MADRIGAL MD; NURA ANNE ~MTH0 0 [] Heart Score: C/O Chest Pain: No HEART Score for Chest Pain: HEART Score for Chest Pain Response (Comments) Value History Slighlty/Non-Suspicious 0 ECG Normal 0 Age > 65 2 Risk Factors 1 or 2 Risk Factors 1 Total 3 Risk Factors: Risk Factors: DM, Current or recent (<one month) smoker, HTN, HLP, family history of CAD, obesity. Risk Scores: Score 0 - 3: 2.5% MACE over next 6 weeks - Discharge Home Score 4 - 6: 20.3% MACE over next 6 weeks - Admit for Clinical Observation Score 7 - 10: 72.7% MACE over next 6 weeks - Early Invasive Strategies Course & Med Decision Making: Course & Med Decision Making Pertinent Labs and Imaging studies reviewed. (See chart for details) Patient with acute to subacute epidermal hematoma on the right, discussed case with neurosurgery. Keep patient n.p.o. and transfer to [place] in the ICU for definitive management. Patient has hyponatremia, will saline fluids initially in the emergency department. Hyperkalemia likely secondary to thiazide diuretic use since patient also presents with hypovolemia. We will not pursue aggressive sodium correction as patient has mild symptoms based on h istory of falls. Patient transferred to [place] via EMS demonstrating no neuro deficits. [] Dragon Disclaimer: Dragon Disclaimer: This electronic medical record was generated, in whole or in part, using a voice recognition dictation system. Departure Departure: Impression: Primary Impression: Hyponatremia Additional Impression: Epidural hematoma Disposition: 02 SHORT TERM HOSPITAL Condition: CRITICAL Referrals: NURA ANNE (PCP) AMARIS MADRIGAL MD Aug 23, 2021 08:47
[2021-08-23 08:50] LABS: INFLUENZA A PATIENT NEGATIVE (NEGATIVE); INFLUENZA B PATIENT NEGATIVE (NEGATIVE)
[2021-08-23 09:15] VITALS: BP 116/81
== END 2021-08-23 09:15 | disposition short-term general hospital (02) ==
LOC: ER 06:52
DX: E87.1 Hypo-osmolality and hyponatremia (principal); S06.4X9A Epidural hemorrhage with loss of consciousness of unspecified duration, initial encounter; I10 Essential (primary) hypertension; Z20.822 Contact with and (suspected) exposure to COVID-19; Z88.0 Allergy status to penicillin; W18.39XA Other fall on same level, initial encounter; Y93.89 Activity, other specified; Y92.89 Other specified places as the place of occurrence of the external cause; Y99.8 Other external cause status
CPT/HCPCS: 36415; 70450; 72125; 80053; 83735; 83880; 84100; 84484; 85025; 85610; 87428; 93005; 96360; 99285; C9803; J7040; U0003

== ENCOUNTER 2021-09-20 01:55 | Emergency (ER) | payer MEDICARE ==
[~2021-09-20] VITALS: Ht 157.5 cm; Wt 32.0 kg
--- NOTE | 2021-09-20 02:59 | PHYS DOC ---
Past History Past Medical History: Hypertension Additional Past Medical Histor: ABDOMINAL AORTIC ANEURYSM Past Surgical History: Other Additional Past Surgical Histo: ENDOVASCULAR ABDOMINAL AORTIC ANEURYSM REPAIR Alcohol Use: None Drug Use: None General Adult EDM: Chief Complaint: AMS HPI: HPI: 81-year-old female presents via EMS from [facility] with altered mental status. The patient was reported to be altered "all day". She is normally a little and oriented and able to walk around on her own. She is awake but is unable to answer any questions. The entire history comes from EMS reports. The patient was reported to have increased work of breathing and that is why they decided to call an ambulance. Patient was not reported to have a fever. Review of Systems: Review of Systems: Constitutional: Denies fever or chills Eyes: Denies change in visual acuity HENT: Denies nasal congestion or sore throat Respiratory: Denies cough or shortness of breath Cardiovascular: Denies chest pain or edema GI: Denies abdominal pain, nausea, vomiting, bloody stools or diarrhea : Denies dysuria Musculoskeletal: Denies back pain or joint pain Integument: Denies rash Neurologic: Denies headache, focal weakness or sensory changes Endocrine: Denies polyuria or polydipsia Lymphatic: Denies swollen glands Psychiatric: Denies depression or anxiety Allergies: Allergies: Allergies Coded Allergies Type Severity Reaction Last Updated Verified Penicillins Allergy Unknown 08/23/21 Yes Physical Exam: PE: Constitutional: Well developed, well nourished, no acute distress, non-toxic appearance. [] HENT: Normocephalic, atraumatic, bilateral external ears normal, oropharynx moist, no oral exudates, nose normal. [] Eyes: PERRLA, EOMI, conjunctiva normal, no discharge. [] Neck: Normal range of motion, no tenderness, supple, no stridor. [] Cardiovascular:Heart rate regular rhythm, no murmur [] Lungs & Thorax: Bilateral breath sounds clear to auscultation [] Abdomen: Bowel sounds normal, soft, no tenderness, no masses, no pulsatile masses. [] Skin: Warm, dry, no erythema, no rash. [] Back: No tenderness, no CVA tenderness. [] Extremities: No tenderness, no cyanosis, no clubbing, ROM intact, no edema. [] Neurologic: Alert and oriented X 3, normal motor function, normal sensory function, no focal deficits noted. [] Psychologic: Affect normal, judgement normal, mood normal. [] EKG: EKG: [] Radiology/Procedures: Radiology/Procedures: [] Heart Score: C/O Chest Pain: N/A Risk Factors: Risk Factors: DM, Current or recent (<one month) smoker, HTN, HLP, family history of CAD, obesity. Risk Scores: Score 0 - 3: 2.5% MACE over next 6 weeks - Discharge Home Score 4 - 6: 20.3% MACE over next 6 weeks - Admit for Clinical Observation Score 7 - 10: 72.7% MACE over next 6 weeks - Early Invasive Strategies Course & Med Decision Making: Course & Med Decision Making Pertinent Labs and Imaging studies reviewed. (See chart for details) The patient is extremely thin and noticed difficult establishing IV access. We are trying to get blood from the patient she started to decrease her respiratory rate and her heart rate began to fall. We checked with her paperwork to try to understand her CODE STATUS. It was very nebulous as to what she wanted. We got a hold of the patient's sister who did not think that the patient wanted intubation. We were uncertain so we began CPR when she lost a pulse. We continued to try to get a hold of the power of privacy attorney which was her son. We did 4 rounds of epinephrine with continuous compressions. I did intubate the patient with a 7.0 ET tube on a single attempt with a glide scope. There was good color change. Good chest rise bilaterally. No breath sounds in the abdomen. The patient had a pulse after the fourth round of epinephrine. I was then able to talk to her son who stated that the patient does not want to be intubated or kept on mechanical ventilation. I explained to him that it was possible if we removed this that she has to wait. He states verbal understanding but this is her wish and he wants to honor that. The patient was extubated and placed on supplemental oxygen. She was spontaneously breathing on her own. The patient's son further stated that he does not believe she wants to be on pressors to keep her blood pressure up. After the epinephrine wore off, patient's heart rate was 130 and her blood pressure improved to 116/85. We will transfer the patient to [facility]. I spoke with the hospitalist, Dr. Ordonez and he has accepted the patient for transfer and admission to the ICU. Patient's initial ABG had a pH of 7.12, CO2 43.8, O2 164. We will give the patient 2 A of bicarb. Prior to transfer, the patient's blood pressure began to steadily fall. She became too hypotensive for transfer. I had already specifically addressed pressors with the patient's son and he did not believe she would want that. We will continue to monitor the patient but she did not recover but continued to decline. She at 0400. Family was notified. [] Dragon Disclaimer: Dragon Disclaimer: This electronic medical record was generated, in whole or in part, using a voice recognition dictation system. Departure Departure: Impression: Primary Impression: Altered mental status Additional Impression: Cardiopulmonary arrest Disposition: 20 Condition: Referrals: NURA ANNE (PCP) CUATE SANCHES DO Sep 20, 2021 02:59
[2021-09-20] MEDS ORDERED: EPINEPHrine SYRINGE 1 MG/10 ML SYRINGE. ONE (03:15)
[2021-09-20] MEDS ORDERED: SODIUM BICARB ADULT 8.4% 50 MEQ/50 ML DISP.SYRIN. IV ONE ×2 (03:15)
[2021-09-20] MEDS ORDERED: SODIUM BICARB ADULT 8.4% 50 MEQ/50 ML DISP.SYRIN. ONE (03:15)
[2021-09-20 03:23] LABS: BASO # 0.1 x10^3/uL (0.0-0.2); BASO % 0 % (0-3); EOS % 0 % (0-3); HEMATOCRIT 37.7 % (36.0-47.0); HEMOGLOBIN 11.4 g/dL (12.0-15.5); LYMPH # 1.7 x10^3/uL (1.0-4.8); LYMPH % 10 % (24-48); MEAN CORPUSCULAR HEMOGLOBIN 30 pg (25-35); MEAN CORPUSCULAR HGB CONC 30 g/dL (31-37); MEAN CORPUSCULAR VOLUME 100 fL (79-100); MONO # 0.3 x10^3/uL (0.0-1.1); MONO % 2 % (0-9); NEUT # 15.3 x10^3uL (1.8-7.7); NEUT % 88 % (31-73); PLATELET COUNT 88 x10^3/uL (140-400); RED BLOOD COUNT 3.78 x10^6/uL (3.50-5.40); RED CELL DISTRIBUTION WIDTH 16.2 % (11.5-14.5); WHITE BLOOD COUNT 17.4 x10^3/uL (4.0-11.0)
[2021-09-20 03:30] LABS: BGAS PH 7.12 (7.35-7.45)
[2021-09-20 03:33] VITALS: BP 62/34
[2021-09-20 03:36] LABS: CALCIUM 9.2 mg/dL (8.5-10.1); CREATININE 2.4 mg/dL (0.6-1.0); GFR 19.4; POTASSIUM 4.4 mmol/L (3.5-5.1)
[2021-09-20 03:42] LABS: ALBUMIN 1.9 g/dL (3.4-5.0); ALBUMIN/GLOBULIN RATIO 0.5 (1.0-1.7); TOTAL BILIRUBIN 1.5 mg/dL (0.2-1.0); TOTAL PROTEIN 5.6 g/dL (6.4-8.2)
[2021-09-20 03:46] LABS: % BANDS 16 % (0-9); % LYMPHS 12 % (24-48); % SEGS 72 % (35-66)
[2021-09-20 03:47] LABS: PLT ESTIMATE DECREASED (ADEQUATE)
[2021-09-20 03:48] LABS: BURR CELLS FEW
--- NOTE | 2021-09-20 03:53 | EKG ---
[address] [address] Test Date: 2021-09-20 Test Time: 03:18:30 Pat Name: GABRIEL NEWTON Department: Room: Gender: F Nuclear Physician: : 1940 Requested By: CUATE SANCHES Order Number: [id number] Reading MD: Measurements Intervals [place] Rate: 107 P: CT: QRS: 58 QRSD: 130 T: -17 QT: 352 QTc: 476 Interpretive Statements ACCELERATED JUNCTIONAL RHYTHM LOW LIMB LEAD VOLTAGE NON SPECIFIC INTRAVENTRICULAR BLOCK QRS(T) CONTOUR ABNORMALITY CONSISTENT WITH SEPTAL INFARCT AGE UNDETERMINED ABNORMAL ECG RI6.02 No previous ECG available for comparison
--- NOTE | 2021-09-20 03:59 | EKG ---
[address] [address] Test Date: 2021-09-20 Test Time: 03:36:23 Pat Name: GABRIEL NEWTON Department: Room: Gender: F Ext Js Developer: : 1940 Requested By: CUATE SANCHES Order Number: [id number] Reading MD: Anurag Morel Measurements Intervals [place] Rate: 95 P: 124 [place]: 124 QRS: 49 QRSD: 80 T: 229 QT: 378 QTc: 478 Interpretive Statements SINUS RHYTHM LOW LIMB LEAD VOLTAGE ST & T ABNORMALITY, CONSIDER INFERIOR ISCHEMIA OR LEFT VENTRICULAR STRAIN T ABNORMALITY IN LATERAL LEADS ABNORMAL ECG Electronically Signed On 10-01-2021 9:53:05 CDT by Anurag Morel
== END 2021-09-20 04:00 ==
LOC: ER 01:55
DX: I46.9 Cardiac arrest, cause unspecified (principal); R41.82 Altered mental status, unspecified; I10 Essential (primary) hypertension; Z88.0 Allergy status to penicillin
CPT/HCPCS: 31500; 36415; 36600; 80053; 82803; 83605; 84484; 85007; 85025; 92950; 93005; 99285; J0171